=== PATIENT | female | born 1955 | race Caucasian/White ===

== ENCOUNTER → 2016-12-10 | Outpatient (CLI) | payer MEDICAID ==
--- NOTE | 2016-12-10 15:37 | WOMENS IMAGING REPORT ---
EXAM DESCRIPTION: BILAT SCREENING MAMMO W/CAD COMPLETED DATE/TIME: 12/10/2016 2:41 pm REASON FOR STUDY: Z12.31 ROUTINE SCREENING MAMMO Z12.31 ENCNTR SCREEN MAMMOGRAM FOR MALIGNANT NEOPL ASM OF MISAEL COMPARISON: None. TECHNIQUE: Standard craniocaudal and mediolateral oblique views of each breast recorded using [employer] l acquisition. LIMITATIONS: None. FINDINGS: Findings present which are benign by mammographic criteria. No suspicious masses, calcifi cations or architectural distortion. Benign breast parenchymal calcifications bilaterally. Read with the assistance of CAD. .[facility] - R2 Cenova Version 1.3 .[facility] - R2 Cenova Version 1.3 .[facility] - R2 Cenova Version 2.4 .[facility] - R2 Cenova Version 2.4 .[facility] - R2 Deputy Director Version 9.2 Benign mammographic findings may include one or more of the following: Smooth masses, popcorn/rim/co arse calcifications, asymmetries, post-procedure changes, and lesions with long-standing stability. BREAST DENSITY: a. The breasts are almost entirely fatty. BIRAD: 2 BENIGN FINDING(S) RECOMMENDATION: ROUTINE SCREENING COMMENT: PATIENT NOTIFIED BY LETTER. The [employer] recommends an annual screening mammogram for women aged 40 years or over. Each patient will receive a reminder prior to the anniversary date of her mammogram. The [employer] (ACR) has developed recommendations for screening MRI of the breast s in certain patient populations, to be used in conjunction with mammography. Breast MRI surveillanc e may be appropriate for women with more than 20% lifetime risk of developing breast cancer as deter mined by genetic testing, significant family history of the disease, or history of mantle radiation f or Hodgkins Disease. ACR Practice Guidelines 2008. TECHNICAL DOCUMENTATION: FINDING NUMBER: (1) ASSESSMENT: (1) JOB ID: [id number] [employer]- All Rights Reserved
== END ==
LOC: WI 14:01
PROVIDERS: ATTEND Nurse Practitioner Family
DX: Z12.31 Encounter for screening mammogram for malignant neoplasm of breast (principal)
CPT/HCPCS: 77067; G0202

== ENCOUNTER 2016-12-16 09:36 | Emergency (ER) | payer MEDICAID ==
--- NOTE | 2016-12-16 10:06 | ER Document Report ---
ED General - General Chief Complaint: Abdominal Pain Stated Complaint: ABDOMINAL PAIN Information source: Patient Notes: 61 yr old female presents with complaints of abdominal pain back pain of 1 month duration. pt was seen at ED on sat , treated with percocet for pain. ran out of pain medication last night and awoke this morning with pain. imaging labs noted no signifcant abnormalities TRAVEL OUTSIDE OF THE [place] IN LAST 30 DAYS: No - HPI Onset: Other - One month duration Onset/Duration: Persistent Quality of pain: Achy Severity: Mild Pain Level: 1 Associated symptoms: None Exacerbated by: Denies Relieved by: Denies Similar symptoms previously: Yes Recently seen / treated by doctor: Yes - Related Data Allergies/Adverse Reactions: oxycodone [Oxycodone] Allergy (Mild, Verified 11/11/11 15:44) nausea, abdominal pain Past Medical History - Social History Smoking Status: Never Smoker Cigarette use (# per day): No Chew tobacco use (# tins/day): No Smoking Education Provided: No Family History: Reviewed & Not Pertinent - Past Medical History Cardiac Medical History: Denies: Hx Coronary Artery Disease, Hx Heart Attack, Hx Hypertension Pulmonary Medical History: Reports: Hx Asthma, Hx Bronchitis, Hx COPD Denies: Hx Pneumonia Neurological Medical History: Denies: Hx Cerebrovascular Accident - Has had numbness in Lt arm x2 in 5 yrs; unable to move it at the time, Hx Seizures Musculoskeltal Medical History: Reports Hx Arthritis - Fingers Past Surgical History: Reports: Hx Cholecystectomy. Denies: Hx Hysterectomy, Hx Pacemaker - Immunizations Hx Diphtheria, Pertussis, Tetanus Vaccination: No Hx Pneumococcal Vaccination: 08/31/14 Review of Systems - Review of Systems Notes: REVIEW OF SYSTEMS: CONSTITUTIONAL : Denies fever, chills, or sweats. Denies recent illness. EENT: Denies eye, ear, throat, or mouth pain or symptoms. Denies nasal or sinus congestion or discharge. Denies throat, tongue, or mouth swelling or difficulty swallowing. CARDIOVASCULAR: Denies chest pain. Denies palpitations or racing or irregular heart beat. Denies ankle edema. RESPIRATORY: Denies cough, cold, or chest congestion. Denies shortness of breath, difficulty breathing, or wheezing. GASTROINTESTINAL: Admits to abdominal pain GENITOURINARY: Denies difficulty urinating, painful urination, burning, frequency, blood in urine, or discharge. FEMALE GENITOURINARY: Denies vaginal bleeding, heavy or abnormal periods, irregular periods. Denies vaginal discharge or odor. MUSCULOSKELETAL: Admits to body ache SKIN: Denies rash, lesions or sores. HEMATOLOGIC : Denies easy bruising or bleeding. LYMPHATIC: Denies swollen, enlarged glands. NEUROLOGICAL: Denies confusion or altered mental status. Denies passing out or loss of consciousness. Denies dizziness or lightheadedness. Denies headache. Denies weakness or paralysis or loss of use of either side. Denies problems with gait or speech. Denies sensory loss, numbness, or tingling. Denies seizures. PSYCHIATRIC: Denies anxiety or stress. Denies depression, suicidal ideation, or homicidal ideation. ALL OTHER SYSTEMS REVIEWED AND NEGATIVE. Dictation was performed using [employer] voice recognition software PHYSICAL EXAMINATION: GENERAL: Well-appearing, well-nourished and in no acute distress. HEAD: Atraumatic, normocephalic. EYES: Pupils equal round and reactive to light, extraocular movements intact, conjunctiva are normal. ENT: Nares patent, oropharynx clear without exudates. Moist mucous membranes. NECK: Normal range of motion, supple without lymphadenopathy LUNGS: Breath sounds clear to auscultation bilaterally and equal. No wheezes rales or rhonchi. HEART: Regular rate and rhythm without murmurs ABDOMEN: Soft, nontender, nondistended abdomen. No guarding, no rebound. No masses appreciated. Female : deferred Musculoskeletal: Normal range of motion, no pitting or edema. No cyanosis. NEUROLOGICAL: Cranial nerves grossly intact. Normal speech, normal gait. Normal sensory, motor exams PSYCH: Normal mood, normal affect. SKIN: Warm, Dry, normal turgor, no rashes or lesions noted. Course - Re-evaluation Re-evalutation: 12/16/16 10:48 Physical examination noted no significant abnormalities, patient otherwise appears stable. Given her complaints 12/16/16 12:25 Patient's lab work is consistent with hypokalemia, she has been given potassium , magnesium is pending at this time 12/16/16 12:55 Imaging notes no significant abnormality, report has been given to the patient and friend After performing a Medical Screening Examination, I estimate there is LOW risk for ACUTE APPENDICITIS, BOWEL OBSTRUCTION, ACUTE CHOLECYSTITIS, PERFORATED DIVERTICULITIS, INCARCERATED HERNIA, PANCREATITIS, PELVIC INFLAMMATORY DISEASE, PERFORATED ULCER, ECTOPIC , or TUBO-OVARIAN ABSCESS, thus I consider the discharge disposition reasonable. Also, there is no evidence or peritonitis , sepsis, or toxicity. The patient and I have discussed the diagnosis and risks , and we agree with discharging home with close follow-up with the understanding that symptoms and presentations can change. We also discussed returning to the Emergency Department immediately if new or worsening symptoms occur. We have discussed the symptoms which are most concerning (e.g., bloody stool, fever, changing or worsening pain, vomiting) that necessitate immediate return. - Laboratory Result Diagrams: 12/16/16 09:45 12/16/16 09:45 Laboratory results interpreted by me: 12/16/16 09:45 Potassium 3.0 L* Chloride 109 H BUN 6 L Creatinine 0.43 L Calcium 7.4 L Total Protein 4.8 L Albumin 2.6 L - Diagnostic Test Radiology reviewed: Image reviewed, Reports reviewed Discharge - Discharge Clinical Impression: Hypokalemia Abdominal pain Qualifiers: Abdominal location: generalized Qualified Code(s): R10.84 - Generalized abdominal pain GERD (gastroesophageal reflux disease) Qualifiers: Esophagitis presence: with esophagitis Qualified Code(s): K21.0 - Gastro- esophageal reflux disease with esophagitis Condition: Stable Disposition: HOME, SELF-CARE Instructions: Abdominal Pain ([facility]) Additional Instructions: Please eat a banana daily for next 3 days and recheck your labs with your pcp in 1 week Prescriptions: Esomeprazole Magnesium [Nexium 24Hr] 20 mg PO DAILY #30 capsule.dr Referrals: JENNIFER GARCIA MD [ACTIVE STAFF] - Follow up tomorrow
[2016-12-16 10:09] LABS: ABSOLUTE LYMPHOCYTES (AUTO) 1.4 10^3/uL (0.5-4.7); ABSOLUTE MONOCYTES (AUTO) 0.7 10^3/uL (0.1-1.4); ABSOLUTE NEUT (AUTO) 7.1 10^3/uL (1.7-8.2); BASOPHILS % (AUTO) 0.2 % (0-2); EOSINOPHILS % (AUTO) 0.4 % (0-6); HEMATOCRIT 43.1 % (36.0-47.0); HEMOGLOBIN 13.9 g/dL (12.0-15.5); HGB HCT DIFFERENCE -1.4; LYMPHOCYTES % (AUTO) 15.3 % (13-45); MEAN CORPUSCULAR HEMOGLOBIN 30.8 pg (27.0-33.4); MEAN CORPUSCULAR HGB CONC 32.3 g/dL (32.0-36.0); MEAN CORPUSCULAR VOLUME 95 fl (80-97); MONOCYTES % (AUTO) 7.7 % (3-13); RED BLOOD COUNT 4.51 10^6/uL (3.72-5.28); RED CELL DISTRIBUTION WIDTH 13.7 % (11.5-14.0); SEGMENTED NEUTROPHILS % (AUTO) 76.4 % (42-78); WHITE BLOOD COUNT 9.3 10^3/uL (4.0-10.5)
[2016-12-16 10:23] LABS: ALANINE AMINOTRANSFERASE 15 U/L (9-52); ALBUMIN 2.6 g/dL (3.5-5.0); ALKALINE PHOSPHATASE 58 U/L (38-126); ANION GAP 8 (5-19); ASPARTATE AMINO TRANSFERASE 17 U/L (14-36); BILIRUBIN,TOTAL 0.5 mg/dL (0.2-1.3); BLOOD UREA NITROGEN 6 mg/dL (7-20); CALCIUM 7.4 mg/dL (8.4-10.2); CARBON DIOXIDE 24 mmol/L (22-30); CHLORIDE 109 mmol/L (98-107); CREATININE RESULT 0.43 mg/dL (0.52-1.25); GLUCOSE 85 mg/dL (75-110); LIPASE 82.5 U/L (23-300); SODIUM 141.2 mmol/L (137-145); TOTAL PROTEIN 4.8 g/dL (6.3-8.2)
[2016-12-16 10:28] LABS: APPEARANCE,URINE CLEAR; BILIRUBIN,URINE NEGATIVE (NEGATIVE); GLUCOSE, URINE NEGATIVE (NEGATIVE); KETONES,URINE NEGATIVE (NEGATIVE); LEUKOCYTE ESTERASE,URINE NEGATIVE (NEGATIVE); NITRITE,URINE NEGATIVE (NEGATIVE); PROTEIN,URINE NEGATIVE (NEGATIVE); URINE SPECIFIC GRAVITY 1.003; UROBILINOGEN,URINE NEGATIVE mg/dL (<2.0)
[2016-12-16] MEDS ORDERED: POTASSIUM CHLORIDE 10 MEQ TABLET.SA PO ONE (10:44)
== END 2016-12-16 13:30 | disposition home or self-care (01) ==
LOC: ER 09:36
DX: K21.0 Gastro-esophageal reflux disease with esophagitis (principal); E87.6 Hypokalemia; R10.84 Generalized abdominal pain; M54.9 Dorsalgia, unspecified; J44.9 Chronic obstructive pulmonary disease, unspecified; J45.909 Unspecified asthma, uncomplicated; Z86.73 Personal history of transient ischemic attack (TIA), and cerebral infarction without residual deficits; Z90.49 Acquired absence of other specified parts of digestive tract; Z88.5 Allergy status to narcotic agent
CPT/HCPCS: 36415; 74177; 80053; 81001; 83690; 83735; 85025; 99284

== ENCOUNTER → 2017-04-25 | Outpatient (CLI) | payer MEDICAID ==
--- NOTE | 2017-04-25 15:48 | WOMENS IMAGING REPORT ---
EXAM DESCRIPTION: U/S PELVIS NON-OB COMPLETED DATE/TIME: 04/25/2017 2:25 pm REASON FOR STUDY: R10.2 R10.2 PELVIC AND PERINEAL PAIN COMPARISON: None. TECHNIQUE: Dynamic and static grayscale images acquired of the pelvis via transabdominal approach an d recorded on PACS. Additional selected color Doppler and spectral images recorded. LIMITATIONS: None. FINDINGS: UTERUS: Contour normal. No mass. ENDOMETRIAL STRIPE: No focal or generalized thickening. No masses. CERVIX: No nabothian cysts. RIGHT OVARY: No abnormal masses. RIGHT OVARY DOPPLER: Normal arterial vascular flow without evidence for torsion. LEFT OVARY: Not seen. LEFT OVARY DOPPLER: Not applicable. FREE FLUID: None noted. OTHER: No other significant finding. MEASUREMENTS: UTERUS: 57 x 27 x 40 mm. ENDOMETRIAL STRIPE: 4 mm. RIGHT OVARY: 29 x 19 x 22 mm. LEFT OVARY: Not seen. IMPRESSION: NORMAL PELVIC ULTRASOUND BY TRANSABDOMINAL TECHNIQUE. TECHNICAL DOCUMENTATION: JOB ID: [id number] [employer]- All Rights Reserved
== END ==
LOC: WI 04-22 13:33
PROVIDERS: ATTEND Physician Assistant
DX: R10.2 Pelvic and perineal pain (principal)
CPT/HCPCS: 76856

== ENCOUNTER 2018-04-11 13:21 | Inpatient (IN) | payer MEDICAID ==
[2018-04-11] MEDS ORDERED: IPRATROPIUM/ALBUTEROL 0.5-2.5 MG/3 ML AMPUL NEB ONE ×2 (13:58→16:52)
[2018-04-11] MEDS ORDERED: PREDNISONE 20 MG TABLET PO ONE (13:58)
--- NOTE | 2018-04-11 14:02 | ER Document Report ---
ED Medical Screen (RME) - General Chief Complaint: Shortness Of Breath Stated Complaint: BREATHING ISSUES Time Seen by Provider: 04/11/18 13:53 Notes: RAPID MEDICAL EVALUATION DISCLOSURE I have seen this patient as part of a Rapid Medical Evaluation and, if applicable, placed any initially appropriate orders. The patient will be seen and fully evaluated, including a full history and physical exam, by a provider ( in Main ED or Fast Track) when a room becomes available. 62-year-old female here with complaints of shortness of breath wheezing chest tightness fatigue ongoing for the past few days. Some clear cough but is chronic and unchanged from baseline. She is having difficulty walking from her kitchen to her living room due to the symptoms. Has been using her inhalers with minimal relief. She does not have a nebulizer machine. She reports that she does not wear oxygen at home at baseline. She does not know her normal baseline oxygen saturation levels. EXAM Tachycardic, low 110s Minimal end expiratory wheezes diffusely Minimally decreased aeration diffusely Lower lobe rhonchi TRAVEL OUTSIDE OF THE [place] IN LAST 30 DAYS: No - Related Data Allergies/Adverse Reactions: oxycodone [Oxycodone] Allergy (Mild, Verified 04/11/18 13:24) nausea, abdominal pain Past Medical History - Past Medical History Cardiac Medical History: Denies: Hx Coronary Artery Disease, Hx Heart Attack, Hx Hypertension Pulmonary Medical History: Reports: Hx Asthma, Hx Bronchitis, Hx COPD Denies: Hx Pneumonia Neurological Medical History: Denies: Hx Cerebrovascular Accident - Has had numbness in Lt arm x2 in 5 yrs; unable to move it at the time, Hx Seizures Musculoskeltal Medical History: Reports Hx Arthritis - Fingers Past Surgical History: Reports: Hx Cholecystectomy. Denies: Hx Hysterectomy, Hx Pacemaker - Immunizations Hx Diphtheria, Pertussis, Tetanus Vaccination: No Physical Exam - Vital signs Vitals: Temp Pulse Resp BP Pulse Ox 98.6 F 114 H 26 H 140/80 H 90 L 04/11/18 13:42 04/11/18 13:42 04/11/18 13:42 04/11/18 13:42 04/11/18 13:42 Course - Vital Signs Vital signs: Temp Pulse Resp BP Pulse Ox 98.6 F 114 H 26 H 140/80 H 90 L 04/11/18 13:42 04/11/18 13:42 04/11/18 13:42 04/11/18 13:42 04/11/18 13:42
--- NOTE | 2018-04-11 14:33 | RADIOLOGY REPORT (SQ) ---
EXAM DESCRIPTION: CHEST 2 VIEWS COMPLETED DATE/TIME: 04/11/2018 2:22 pm REASON FOR STUDY: SOB hypoxia; eval pneumonia COMPARISON: 10/17/2015 EXAM PARAMETERS: NUMBER OF VIEWS: two views TECHNIQUE: Digital Frontal and Lateral radiographic views of the chest acquired. RADIATION DOSE: NA LIMITATIONS: none FINDINGS: LUNGS AND PLEURA: No opacities, masses or pneumothorax. No pleural effusion. MEDIASTINUM AND HILAR STRUCTURES: No masses or contour abnormalities. HEART AND VASCULAR STRUCTURES: Heart normal size. No evidence for failure. BONES: No acute findings. HARDWARE: None in the chest. OTHER: No other significant finding. IMPRESSION: NO ACUTE RADIOGRAPHIC FINDING IN THE CHEST. TECHNICAL DOCUMENTATION: JOB ID: [id number] [employer]- All Rights Reserved Reading location - IP/workstation name: [email or web address]
--- NOTE | 2018-04-11 14:48 | ER Document Report ---
ED General - General Chief Complaint: Shortness Of Breath Stated Complaint: BREATHING ISSUES Time Seen by Provider: 04/11/18 13:53 Mode of Arrival: Ambulatory Information source: Patient TRAVEL OUTSIDE OF THE [place] IN LAST 30 DAYS: No - HPI Patient complains to provider of: sob Onset: Other - "2-3 weeks ago" Onset/Duration: Gradual Associated symptoms: Productive cough - white sputum, Leg swelling - pt fell one week ago-contusion right weir., Shortness of breath Exacerbated by: Movement, Walking Relieved by: Whitley - MDIs not working Notes: Patient complains of 2-3 weeks of breathing issues. She states that she has a history of COPD. She does continue to smoke and she did have 2 cigarettes today. She states she does not have a nebulizer or home oxygen. She states her 3 inhalers are not working. She states she does have a history of a left lower extremity DVT last year she was on Xarelto and now is on 81 mg of aspirin daily.Patient states she has never been hospitalized for her COPD. She does state that she fell approximately 1 week ago she has a contusion on her right weir with a small cut. She was seen and treated for this last week. - Related Data Allergies/Adverse Reactions: oxycodone [Oxycodone] Allergy (Mild, Verified 04/11/18 13:24) nausea, abdominal pain Home Medications: klonipin, unknown all other medications. macrobid for recent UTI Past Medical History - General Information source: Patient - Social History Smoking Status: Current Every Day Smoker Cigarette use (# per day): No Smoking Education Provided: Yes Frequency of alcohol use: None Drug Abuse: None Lives with: Alone - next door to her mom Family History: Reviewed & Not Pertinent Patient has suicidal ideation: No Patient has homicidal ideation: No - Past Medical History Cardiac Medical History: Reports: Hx DVT Denies: Hx Coronary Artery Disease, Hx Heart Attack, Hx Hypertension Pulmonary Medical History: Reports: Hx Asthma, Hx Bronchitis, Hx COPD Denies: Hx Pneumonia EENT Medical History: Reports: None Neurological Medical History: Reports: None. Denies: Hx Cerebrovascular Accident - Has had numbness in Lt arm x2 in 5 yrs; unable to move it at the time , Hx Seizures Endocrine Medical History: Reports: None Renal/ Medical History: Denies: Hx Peritoneal Dialysis Malignancy Medical History: Reports: None GI Medical History: Reports: None Musculoskeltal Medical History: Reports Hx Arthritis - Fingers Skin Medical History: Reports None Psychiatric Medical History: Reports: None Traumatic Medical History: Reports: None Past Surgical History: Reports: Hx Cholecystectomy. Denies: Hx Hysterectomy, Hx Pacemaker - Immunizations Hx Diphtheria, Pertussis, Tetanus Vaccination: No Hx Pneumococcal Vaccination: 08/31/14 Review of Systems - Review of Systems Constitutional: Other - fatigue EENT: No symptoms reported Cardiovascular: No symptoms reported Respiratory: See HPI, Cough, Short of breath, Sputum, Wheezing Gastrointestinal: No symptoms reported Female Genitourinary: Other - treated for uti last week Musculoskeletal: No symptoms reported Skin: Other - contusion/laceration right weir Neurological/Psychological: No symptoms reported Physical Exam - Vital signs Vitals: Temp Pulse Resp BP Pulse Ox 98.6 F 114 H 26 H 140/80 H 90 L 04/11/18 13:42 04/11/18 13:42 04/11/18 13:42 04/11/18 13:42 04/11/18 13:42 - Notes Notes: PHYSICAL EXAMINATION: GENERAL: Well-appearing, well-nourished and in Mild respiratory distress. HEAD: Atraumatic, normocephalic. EYES: Pupils equal round and reactive to light, extraocular movements intact, conjunctiva are normal. ENT: Nares patent, oropharynx clear without exudates. Moist mucous membranes. NECK: Normal range of motion, supple without lymphadenopathy LUNGS:Respiratory and expiratory wheezing bilaterally. No rhonchi no rales HEART: Regular rate and rhythm without murmurs ABDOMEN: Soft, nontender, nondistended abdomen. No guarding, no rebound. No masses appreciated. Female : deferred Musculoskeletal: Normal range of motion, no pitting or edema. No cyanosis. NEUROLOGICAL: Cranial nerves grossly intact. Normal speech. Normal sensory, motor exams PSYCH: Normal mood, normal affect. SKIN: Warm, Dry, normal turgor, no rashe. Patient has a contusion to her right upper weir area just distal to her knee. There is no pain or tenderness of the fibular head with palpation. There is no tenderness to the knee. Patient has no calf swelling or tenderness bilaterally. Course - Re-evaluation Re-evalutation: 04/11/18 18:00 Pt. 90% pulse ox with 2nd duoneb tx. Aggreeable to admission. 04/11/18 18:01 Labs- All tests 24 hr 04/11/18 04/11/18 04/11/18 14:35 14:35 14:35 WBC 10.4 RBC 4.69 Hgb 14.0 Hct 42.0 MCV 90 MCH 29.8 MCHC 33.3 RDW 14.4 H Plt Count 327 Seg Neutrophils % 77.5 Lymphocytes % 12.4 L Monocytes % 6.4 Eosinophils % 3.4 Basophils % 0.3 Absolute Neutrophils 8.0 Absolute Lymphocytes 1.3 Absolute Monocytes 0.7 Absolute Eosinophils 0.4 Absolute Basophils 0.0 Sodium 146.2 H Potassium 3.5 L Chloride 101 Carbon Dioxide 33 H Anion Gap 12 BUN 5 L Creatinine 0.51 L Est GFR ( Amer) > 60 Est GFR (Non-Af Amer) > 60 Glucose 109 Lactic Acid 1.4 Calcium 9.5 Troponin I Urine Color Urine Appearance Urine pH Ur Specific [place] Urine Protein Urine Glucose (UA) Urine Ketones Urine Blood Urine Nitrite Urine Bilirubin Urine Urobilinogen Ur Leukocyte Esterase Urine WBC (Auto) Urine Bacteria (Auto) Squamous Epi Cells Auto Urine Mucus (Auto) Urine Ascorbic Acid 04/11/18 04/11/18 14:35 14:35 WBC RBC Hgb Hct MCV MCH MCHC RDW Plt Count Seg Neutrophils % Lymphocytes % Monocytes % Eosinophils % Basophils % Absolute Neutrophils Absolute Lymphocytes Absolute Monocytes Absolute Eosinophils Absolute Basophils Sodium Potassium Chloride Carbon Dioxide Anion Gap BUN Creatinine Est GFR ( Amer) Est GFR (Non-Af Amer) Glucose Lactic Acid Calcium Troponin I < 0.012 Urine Color STRAW Urine Appearance CLEAR Urine pH 7.0 Ur Specific [place] 1.003 Urine Protein NEGATIVE Urine Glucose (UA) NEGATIVE Urine Ketones NEGATIVE Urine Blood NEGATIVE Urine Nitrite NEGATIVE Urine Bilirubin NEGATIVE Urine Urobilinogen NEGATIVE Ur Leukocyte Esterase NEGATIVE Urine WBC (Auto) 2 Urine Bacteria (Auto) TRACE Squamous Epi Cells Auto <1 Urine Mucus (Auto) RARE Urine Ascorbic Acid NEGATIVE Chest X-Ray 04/11/18 13:58 IMPRESSION: NO ACUTE RADIOGRAPHIC FINDING IN THE CHEST. Chest/Abdomen CTA 04/11/18 14:38 IMPRESSION: CENTRILOBULAR EMPHYSEMA. CHRONIC BILATERAL INTERSTITIAL SCARRING. NO PULMONARY EMBOLI. - Vital Signs Vital signs: Temp Pulse Resp BP Pulse Ox 98.6 F 114 H 26 H 140/80 H 90 L 04/11/18 13:42 04/11/18 13:42 04/11/18 13:42 04/11/18 13:42 04/11/18 13:42 - Laboratory Result Diagrams: 04/11/18 14:35 04/11/18 14:35 Laboratory results interpreted by me: 04/11/18 04/11/18 14:35 14:35 RDW 14.4 H Lymphocytes % 12.4 L Sodium 146.2 H Potassium 3.5 L Carbon Dioxide 33 H BUN 5 L Creatinine 0.51 L - Diagnostic Test Radiology reviewed: Image reviewed, Reports reviewed - EKG Interpretation by Me EKG shows normal: Sinus rhythm Rate: Tachycardia - 109 When compared to previous EKG there are: No significant change Discharge - Discharge Clinical Impression: COPD exacerbation Condition: Good Disposition: ADMITTED INPATIENT Admitting Provider: Hospitalist - Dr. Leon Unit Admitted: Telemetry
[2018-04-11 14:57] LABS: ABSOLUTE EOSINOPHILS # (AUTO) 0.4 10^3/uL (0.0-0.6); ABSOLUTE LYMPHOCYTES (AUTO) 1.3 10^3/uL (0.5-4.7); ABSOLUTE MONOCYTES (AUTO) 0.7 10^3/uL (0.1-1.4); BASOPHILS % (AUTO) 0.3 % (0-2); EOSINOPHILS % (AUTO) 3.4 % (0-6); LYMPHOCYTES % (AUTO) 12.4 % (13-45); MEAN CORPUSCULAR HEMOGLOBIN 29.8 pg (27.0-33.4); MEAN CORPUSCULAR HGB CONC 33.3 g/dL (32.0-36.0); MEAN CORPUSCULAR VOLUME 90 fl (80-97); MONOCYTES % (AUTO) 6.4 % (3-13); PLATELET COUNT 327 10^3/uL (150-450); RED BLOOD COUNT 4.69 10^6/uL (3.72-5.28); RED CELL DISTRIBUTION WIDTH 14.4 % (11.5-14.0); SEGMENTED NEUTROPHILS % (AUTO) 77.5 % (42-78); TOTAL CELLS COUNTED % (AUTO) 100 %; WHITE BLOOD COUNT 10.4 10^3/uL (4.0-10.5)
[2018-04-11 15:02] LABS: APPEARANCE,URINE CLEAR; BILIRUBIN,URINE NEGATIVE (NEGATIVE); COLOR,URINE STRAW; GLUCOSE, URINE NEGATIVE (NEGATIVE); KETONES,URINE NEGATIVE (NEGATIVE); LEUKOCYTE ESTERASE,URINE NEGATIVE (NEGATIVE); NITRITE,URINE NEGATIVE (NEGATIVE); PROTEIN,URINE NEGATIVE (NEGATIVE); URINE SPECIFIC GRAVITY 1.003; UROBILINOGEN,URINE NEGATIVE mg/dL (<2.0)
[2018-04-11 15:23] LABS: ANION GAP 12 (5-19); BLOOD UREA NITROGEN 5 mg/dL (7-20); CALCIUM 9.5 mg/dL (8.4-10.2); CARBON DIOXIDE 33 mmol/L (22-30); CHLORIDE 101 mmol/L (98-107); GLUCOSE 109 mg/dL (75-110); POTASSIUM 3.5 mmol/L (3.6-5.0); SODIUM 146.2 mmol/L (137-145)
--- NOTE | 2018-04-11 15:53 | EKG REPORT ---
SEVERITY:- ABNORMAL ECG - SINUS TACHYCARDIA CONSIDER ANTEROSEPTAL INFARCT : Confirmed by: Rome Alberts MD 11-Apr-2018 15:52:51
--- NOTE | 2018-04-11 17:02 | RADIOLOGY REPORT (SQ) ---
EXAM DESCRIPTION: CTA CHEST COMPLETED DATE/TIME: 04/11/2018 4:39 pm REASON FOR STUDY: h/o LLE DVT last year -on ASA 81 mg COMPARISON: None. TECHNIQUE: CT scan of the chest performed using helical scanning technique with dynamic intravenous contrast injection. Images reviewed with lung, soft tissue and bone windows. Reconstructed coronal and sagittal MPR images reviewed. Additional 3 dimensional post-processing performed to develop Maximal Intensity Projection images (MS P). All images stored on PACS. All CT scanners at this facility use dose modulation, iterative reconstruction, and/or weight based d osing when appropriate to reduce radiation dose to as low as reasonably achievable (ALARA). [facility]: Dose Right [facility]: CareDose [facility]: Dose Right [facility]: Teradose 4D [facility]: [employer] Technologies CONTRAST TYPE AND DOSE: Isovue 370. 65 mL. Contrast bolus optimized for the pulmonary arteries. Not diagnostic for the aorta. RENAL FUNCTION: Creatinine: 0.51. RADIATION DOSE: 511.78 LIMITATIONS: None. FINDINGS: LUNGS AND PLEURA: Changes of centrilobular emphysema. Chronic subpleural interstitial eileen nges within the upper lobes and both lower lobes. AORTA AND GREAT VESSELS: No aneurysm. Contrast bolus not optimized for the aorta. HEART: No pericardial effusion. No significant coronary artery calcifications. PULMONARY ARTERIES: No pulmonary emboli. HILAR AND MEDIASTINAL STRUCTURES: Small nonenlarged pretracheal, AP window and hilar nodes. . HARDWARE: None in the chest. UPPER ABDOMEN: Hiatal hernia. The liver, spleen, and upper poles of the kidneys demonstrate no abnor mality. Prominent hypodense adrenal masses could represent incidental adrenal adenomata. Status pos t cholecystectomy. THYROID AND OTHER SOFT TISSUES: No masses. No adenopathy. BONES: No acute or significant finding. IMPRESSION: CENTRILOBULAR EMPHYSEMA. CHRONIC BILATERAL INTERSTITIAL SCARRING. NO PULMONARY EMBOLI. COMMENT: Quality ID # [id number]: Final reports with documentation of one or more dose reduction techniques (e.g., Automated exposure control, adjustment of the mA and/or kV according to patient size, use of iterative reconstruction technique) TECHNICAL DOCUMENTATION: JOB ID: [id number] [employer]- All Rights Reserved Reading location - IP/workstation name: [email or web address]
[2018-04-11] MEDS ORDERED: METHYLPREDNISOLONE INJ 40 MG/1 ML SDV IV ONE (17:53)
[2018-04-11] MEDS ORDERED: LINACLOTIDE 290 MCG PO PRN (18:37)
--- NOTE | 2018-04-11 18:39 | PDOC H&P ---
History of Present Illness Admission Date/PCP: PCP: Jessica Houser 04/11/18 Patient complains of: SOB History of Present Illness: The patient is a 62 year old female with past medical history of Depression Panic attacks GERD Emphysema Tobacco dependence DVT She presented to the emergency room with a 3 day history of shortness of breath and cough with mucoid expectoration. She denies any fevers or chills. She smokes 2 cigarettes a day. Healthcare power of city attorney is her mother Sonali. Phone #[phone]. She requests to be a full code. In the emergency room she was found to be satting 89% on room air. She was given nebs and steroids. Chest x-ray shows COPD no infiltrates or effusion or pulmonary edema. Past Medical History Cardiac Medical History: Reports: DVT Pulmonary Medical History: Reports: Chronic Obstructive Pulmonary Disease (COPD) GI Medical History: Reports: Gastroesophageal Reflux Disease Psychiatric Medical History: Reports: Depression, Tobacco Dependency Past Surgical History Past Surgical History: Reports: Cholecystectomy Social History Information Source: Patient Lives with: Alone - next door to her mom Smoking Status: Current Every Day Smoker Frequency of Alcohol Use: None Drugs: None Hx Prescription Drug Abuse: No - Advance Directive Resuscitation Status: Full Code Family History Family History: CAD, COPD Parental Family History Reviewed: Yes Children Family History Reviewed: Yes Sibling(s) Family History Reviewed.: Yes Medication/Allergy Home Medications: Clonazepam 0.5 mg PO TID 11/11/11 Albuterol Sulfate [Proair HFA] 2 puff IH Q4H PRN 10/17/15 Budesonide/Formoterol Fumarate [Symbicort HFA 80-4.5 mcg Inhaler 6.9 gm] 1 puff IH BID 10/17/15 Clonidine HCl [Clonidine HCl ER] 0.1 mg PO QHS 10/17/15 Tiotropium [place] [Spiriva Handihaler 18 mcg/dose (30 Dose)] 1 cap IH DAILY Esomeprazole Magnesium [Nexium 24Hr] 20 mg PO DAILY #30 capsule. 12/16/16 Allergies/Adverse Reactions: oxycodone [Oxycodone] Allergy (Mild, Verified 04/11/18 13:24) nausea, abdominal pain Review of Systems Constitutional: ABSENT: fever(s) Eyes: ABSENT: visual disturbances Ears: ABSENT: hearing changes Nose, Mouth, and Throat: ABSENT: sore throat Cardiovascular: ABSENT: chest pain, edema Respiratory: PRESENT: cough, dyspnea. ABSENT: hemoptysis Gastrointestinal: ABSENT: diarrhea, vomiting Genitourinary: PRESENT: hematuria Musculoskeletal: ABSENT: deformity Integumentary: ABSENT: rash Neurological: ABSENT: focal weakness Psychiatric: ABSENT: hallucinations Endocrine: ABSENT: heat intolerance Hematologic/Lymphatic: ABSENT: easy bruising Physical Exam Vital Signs: Temp Pulse Resp BP Pulse Ox 98.6 F 114 H 26 H 140/80 H 90 L 04/11/18 13:42 04/11/18 13:42 04/11/18 13:42 04/11/18 13:42 04/11/18 13:42 Intake & Output 04/10/18 04/11/18 04/12/18 06:59 06:59 06:59 Weight 63.6 kg General appearance: PRESENT: no acute distress Head exam: PRESENT: normocephalic Eye exam: PRESENT: PERRLA. ABSENT: scleral icterus Ear exam: PRESENT: normal external ear exam Mouth exam: PRESENT: moist Throat exam: ABSENT: tonsillar exudate Neck exam: ABSENT: tracheal deviation Respiratory exam: PRESENT: decreased breath sounds, symmetrical, unlabored Cardiovascular exam: PRESENT: RRR GI/Abdominal exam: PRESENT: normal bowel sounds, soft. ABSENT: tenderness Rectal exam: PRESENT: deferred Extremities exam: ABSENT: calf tenderness, pedal edema Musculoskeletal exam: PRESENT: normal inspection Neurological exam: PRESENT: alert, awake, oriented to person, oriented to place , oriented to time, oriented to situation Psychiatric exam: PRESENT: appropriate affect Skin exam: ABSENT: petechiae Results Laboratory Results: 04/11/18 14:35 04/11/18 14:35 04/11/18 04/11/18 04/11/18 14:35 14:35 14:35 WBC 10.4 RBC 4.69 Hgb 14.0 Hct 42.0 MCV 90 MCH 29.8 MCHC 33.3 RDW 14.4 H Plt Count 327 Seg Neutrophils % 77.5 Lymphocytes % 12.4 L Monocytes % 6.4 Eosinophils % 3.4 Basophils % 0.3 Absolute Neutrophils 8.0 Absolute Lymphocytes 1.3 Absolute Monocytes 0.7 Absolute Eosinophils 0.4 Absolute Basophils 0.0 Sodium 146.2 H Potassium 3.5 L Chloride 101 Carbon Dioxide 33 H Anion Gap 12 BUN 5 L Creatinine 0.51 L Est GFR ( Amer) > 60 Est GFR (Non-Af Amer) > 60 Glucose 109 Lactic Acid 1.4 Calcium 9.5 Urine Color Urine Appearance Urine pH Ur Specific [place] Urine Protein Urine Glucose (UA) Urine Ketones Urine Blood Urine Nitrite Ur Leukocyte Esterase Urine WBC (Auto) 04/11/18 14:35 WBC RBC Hgb Hct MCV MCH MCHC RDW Plt Count Seg Neutrophils % Lymphocytes % Monocytes % Eosinophils % Basophils % Absolute Neutrophils Absolute Lymphocytes Absolute Monocytes Absolute Eosinophils Absolute Basophils Sodium Potassium Chloride Carbon Dioxide Anion Gap BUN Creatinine Est GFR ( Amer) Est GFR (Non-Af Amer) Glucose Lactic Acid Calcium Urine Color STRAW Urine Appearance CLEAR Urine pH 7.0 Ur Specific [place] 1.003 Urine Protein NEGATIVE Urine Glucose (UA) NEGATIVE Urine Ketones NEGATIVE Urine Blood NEGATIVE Urine Nitrite NEGATIVE Ur Leukocyte Esterase NEGATIVE Urine WBC (Auto) 2 04/11/18 14:35 Troponin I < 0.012 Impressions: Chest X-Ray 04/11/18 13:58 IMPRESSION: NO ACUTE RADIOGRAPHIC FINDING IN THE CHEST. Chest/Abdomen CTA 04/11/18 14:38 IMPRESSION: CENTRILOBULAR EMPHYSEMA. CHRONIC BILATERAL INTERSTITIAL SCARRING. NO PULMONARY EMBOLI. Assessment & Plan - Diagnosis (1) COPD exacerbation Is this a current diagnosis for this admission?: Yes Plan: Nebs, outpatient inhalers, supplemental oxygen, steroids, mucinex (2) Panic attacks Is this a current diagnosis for this admission?: Yes Plan: Clonazepam (3) GERD (gastroesophageal reflux disease) Qualifiers: Esophagitis presence: esophagitis presence not specified Qualified Code(s) : K21.9 - Gastro-esophageal reflux disease without esophagitis Is this a current diagnosis for this admission?: Yes Plan: PPI - Time Time Spent: 50 to 70 Minutes - Inpatient Certification Based on my medical assessment, after consideration of the patient's comorbidities, presenting symptoms, or acuity I expect that the services needed warrant INPATIENT care.: Yes Medical Necessity: Risk of Complication if Not Cared For in Hospital, Risk of Diagnosis Which Will Require Inpatient Eval/Care/Monitoring
[2018-04-11] MEDS ORDERED: LEVALBUTEROL HCL NEB 1.25 MG/3 ML AMPUL NEB PRN (18:40)
[2018-04-11] MEDS ORDERED: TEMAZEPAM 7.5 MG CAPSULE PO PRN (18:40)
[2018-04-11] MEDS ORDERED: ONDANSETRON HCL INJ/PF 4 MG/2 ML SDV IV PRN (18:40)
[2018-04-11] MEDS ORDERED: ACETAMINOPHEN 325 MG TABLET PO PRN (18:40)
[2018-04-11] MEDS ORDERED: ONDANSETRON 4 MG TAB.RAPDIS PO PRN (18:40)
[2018-04-11] MEDS: ALBUTEROL SULFATE 0.083% NEB 2.5 MG/3 ML AMPUL NEB SCH (20:35)
[2018-04-11] MEDS: CLONAZEPAM 1 MG TABLET PO SCH (23:39)
[2018-04-11] MEDS: GABAPENTIN 400 MG CAPSULE PO SCH (23:39)
[2018-04-12 05:25] LABS: ANION GAP 9 (5-19); BLOOD UREA NITROGEN 8 mg/dL (7-20); CALCIUM 9.3 mg/dL (8.4-10.2); CARBON DIOXIDE 32 mmol/L (22-30); CHLORIDE 104 mmol/L (98-107); GLUCOSE 129 mg/dL (75-110); PHOSPHORUS 3.6 mg/dL (2.5-4.5)
[2018-04-12 05:45] LABS: POTASSIUM 4.5 mmol/L (3.6-5.0)
[2018-04-12] MEDS: GABAPENTIN 400 MG CAPSULE PO SCH ×3 (05:48→21:44)
[2018-04-12] MEDS: ALBUTEROL SULFATE 0.083% NEB 2.5 MG/3 ML AMPUL NEB SCH ×4 (08:05→19:53)
[2018-04-12] MEDS ORDERED: METHYLPREDNISOLONE INJ 40 MG/1 ML SDV IV ONE (08:45)
[2018-04-12] MEDS: DOCUSATE SODIUM 100 MG CAPSULE PO SCH (09:10)
[2018-04-12] MEDS: ASPIRIN 81 MG TABLET, CHEWABLE PO SCH (09:11)
[2018-04-12] MEDS: CLONAZEPAM 1 MG TABLET PO SCH ×2 (09:11→21:44)
[2018-04-12] MEDS: BUDESONIDE/FORMOTEROL 80-4.5 MCG 60 PUFF/6.9 GM MDI IH SCH ×2 (09:46→17:17)
[2018-04-12] MEDS: TIOTROPIUM BROMIDE DPI 5 CAP/KIT (18 MCG/CAP) IH SCH (09:46)
[2018-04-12] MEDS ORDERED: ENOXAPARIN SODIUM INJ 40 MG/0.4 ML DISP.SYRIN SUBCUT SCH (10:00)
[2018-04-12] MEDS ORDERED: LANSOPRAZOLE 30 MG TAB.RAP.DR PO SCH (10:00)
--- NOTE | 2018-04-12 12:26 | PDOC PROGRESS REPORT ---
Subjective Progress Note for:: 04/12/18 Subjective:: Feels better today. had one episode of wheezing and dyspnea this morning which improved with a neb treatment Reason For Visit: COPD EXACERBATION Physical Exam Vital Signs: Temp Pulse Resp BP Pulse Ox 97.9 F 90 18 136/74 H 90 L 04/12/18 07:17 04/12/18 08:05 04/12/18 08:05 04/12/18 07:17 04/12/18 08:05 Intake & Output 04/11/18 04/12/18 04/13/18 06:59 06:59 06:59 Intake Total 400 Balance 400 Weight 63.6 kg General appearance: PRESENT: no acute distress Head exam: PRESENT: normocephalic Eye exam: PRESENT: PERRLA Ear exam: PRESENT: normal external ear exam Mouth exam: PRESENT: moist Neck exam: ABSENT: tracheal deviation Respiratory exam: PRESENT: rhonchi, symmetrical, unlabored Cardiovascular exam: PRESENT: RRR GI/Abdominal exam: PRESENT: normal bowel sounds, soft. ABSENT: tenderness Rectal exam: PRESENT: deferred Extremities exam: ABSENT: pedal edema Musculoskeletal exam: PRESENT: normal inspection Neurological exam: PRESENT: alert, awake, oriented to person, oriented to place , oriented to time, oriented to situation Psychiatric exam: PRESENT: appropriate affect Skin exam: ABSENT: rash Results Laboratory Results: 04/12/18 04:32 04/12/18 04/12/18 04:32 04:32 Sodium 145.0 Potassium 4.5 D Chloride 104 Carbon Dioxide 32 H Anion Gap 9 BUN 8 Creatinine 0.59 Est GFR ( Amer) > 60 Est GFR (Non-Af Amer) > 60 Glucose 129 H Calcium 9.3 Phosphorus 3.6 Magnesium 1.9 TSH 0.14 L 04/12/18 04:32 NT-Pro-B Natriuret Pep 75 Impressions: Chest X-Ray 04/11/18 13:58 IMPRESSION: NO ACUTE RADIOGRAPHIC FINDING IN THE CHEST. Chest/Abdomen CTA 04/11/18 14:38 IMPRESSION: CENTRILOBULAR EMPHYSEMA. CHRONIC BILATERAL INTERSTITIAL SCARRING. NO PULMONARY EMBOLI. Assessment & Plan - Diagnosis (1) COPD exacerbation Is this a current diagnosis for this admission?: Yes Plan: Nebs, outpatient inhalers, supplemental oxygen, steroids, mucinex (2) Panic attacks Is this a current diagnosis for this admission?: Yes Plan: Clonazepam (3) GERD (gastroesophageal reflux disease) Qualifiers: Esophagitis presence: esophagitis presence not specified Qualified Code(s) : K21.9 - Gastro-esophageal reflux disease without esophagitis Is this a current diagnosis for this admission?: Yes Plan: PPI - Time Time Spent with patient: 25-34 minutes
[2018-04-12] MEDS: METHYLPREDNISOLONE INJ 40 MG/1 ML SDV IV SCH ×2 (13:42→21:44)
[2018-04-13] MEDS: GABAPENTIN 400 MG CAPSULE PO SCH ×3 (06:07→22:19)
[2018-04-13] MEDS: METHYLPREDNISOLONE INJ 40 MG/1 ML SDV IV SCH ×3 (06:08→22:20)
[2018-04-13] MEDS: LANSOPRAZOLE 30 MG TAB.RAP.DR PO SCH (06:08)
[2018-04-13 07:44] LABS: FREE T4 (FREE THYROXINE) 1.08 ng/dL (0.78-2.19)
[2018-04-13 07:57] LABS: THYROID STIMULATING HORMONE 0.12 uIU/mL (0.47-4.68)
[2018-04-13] MEDS: ALBUTEROL SULFATE 0.083% NEB 2.5 MG/3 ML AMPUL NEB SCH ×4 (08:08→20:27)
[2018-04-13] MEDS: TIOTROPIUM BROMIDE DPI 5 CAP/KIT (18 MCG/CAP) IH SCH (10:59)
[2018-04-13] MEDS: BUDESONIDE/FORMOTEROL 80-4.5 MCG 60 PUFF/6.9 GM MDI IH SCH ×2 (11:02→17:40)
[2018-04-13] MEDS: ASPIRIN 81 MG TABLET, CHEWABLE PO SCH (11:03)
[2018-04-13] MEDS: DOCUSATE SODIUM 100 MG CAPSULE PO SCH (11:03)
[2018-04-13] MEDS: CLONAZEPAM 1 MG TABLET PO SCH ×2 (11:03→22:19)
[2018-04-13] MEDS ORDERED: MAG HYDROX/AL HYDROX/SIMETH SUSP 30 ML UDCUP PO PRN (12:06)
[2018-04-13] MEDS ORDERED: SIMETHICONE 80 MG TAB.CHEW PO PRN (12:06)
[2018-04-13 12:40] LABS: HEMATOCRIT 40.3 % (36.0-47.0); HEMOGLOBIN 13.1 g/dL (12.0-15.5); MEAN CORPUSCULAR HEMOGLOBIN 29.3 pg (27.0-33.4); MEAN CORPUSCULAR HGB CONC 32.5 g/dL (32.0-36.0); MEAN CORPUSCULAR VOLUME 90 fl (80-97); PLATELET COUNT 334 10^3/uL (150-450); RED BLOOD COUNT 4.48 10^6/uL (3.72-5.28); RED CELL DISTRIBUTION WIDTH 14.4 % (11.5-14.0); WHITE BLOOD COUNT 12.8 10^3/uL (4.0-10.5)
--- NOTE | 2018-04-13 12:45 | PDOC PROGRESS REPORT ---
Subjective Progress Note for:: 04/13/18 Subjective:: 62 yr old female with COPD and h/o panic attacks. She presented to the hospital with dyspnea and was diagnosed with COPD exacerbation. She was recemtly treated with antibiotics for a UTI as an outpatient. She reports dysuria today. UA was negative on admission. She requests another UA and urine culture. Complaints of constipation and heartburn. Reason For Visit: COPD EXACERBATION Physical Exam Vital Signs: Temp Pulse Resp BP Pulse Ox 97.7 F 85 16 131/68 H 90 L 04/13/18 11:14 04/13/18 12:11 04/13/18 12:11 04/13/18 11:14 04/13/18 12:11 Intake & Output 04/12/18 04/13/18 04/14/18 06:59 06:59 06:59 Intake Total 400 812 Balance 400 812 Weight 63.6 kg 65.4 kg Results Laboratory Results: 04/13/18 06:25 TSH 0.12 L Free T4 1.08 04/12/18 04:32 NT-Pro-B Natriuret Pep 75 Impressions: Chest X-Ray 04/11/18 13:58 IMPRESSION: NO ACUTE RADIOGRAPHIC FINDING IN THE CHEST. Chest/Abdomen CTA 04/11/18 14:38 IMPRESSION: CENTRILOBULAR EMPHYSEMA. CHRONIC BILATERAL INTERSTITIAL SCARRING. NO PULMONARY EMBOLI. Assessment & Plan - Diagnosis (1) COPD exacerbation Is this a current diagnosis for this admission?: Yes Plan: Nebs, outpatient inhalers, supplemental oxygen, steroids, mucinex (2) Panic attacks Is this a current diagnosis for this admission?: Yes Plan: Clonazepam. (3) GERD (gastroesophageal reflux disease) Qualifiers: Esophagitis presence: esophagitis presence not specified Qualified Code(s) : K21.9 - Gastro-esophageal reflux disease without esophagitis Is this a current diagnosis for this admission?: Yes Plan: PPI, maalox prn (4) Dysuria Is this a current diagnosis for this admission?: Yes Plan: Check UA and urine culture. Fluconazole 150 mg once for possible yeast infection. (5) Constipation Is this a current diagnosis for this admission?: Yes Plan: LInzess and laxatives prn (6) DVT prophylaxis Is this a current diagnosis for this admission?: Yes Plan: Subcutaneous Lovenox - Time Time Spent with patient: 25-34 minutes
[2018-04-13 12:49] LABS: INTERNATIONAL RATION (INR) 0.83; PROTHROMBIN TIME 11.8 SEC (11.4-15.4)
[2018-04-13] MEDS ORDERED: ENOXAPARIN SODIUM INJ 40 MG/0.4 ML DISP.SYRIN SUBCUT ONE (13:00)
[2018-04-13] MEDS ORDERED: FLUCONAZOLE 100 MG TABLET PO ONE (13:00)
[2018-04-13] MEDS ORDERED: GUAIFENESIN 600 MG TABLET.SA PO ONE (13:00)
[2018-04-13] MEDS ORDERED: MAGNESIUM CITRATE 296 ML BOTTLE PO ONE (14:00)
[2018-04-13 15:05] LABS: APPEARANCE,URINE CLEAR; BILIRUBIN,URINE NEGATIVE (NEGATIVE); COLOR,URINE STRAW; GLUCOSE, URINE NEGATIVE (NEGATIVE); KETONES,URINE NEGATIVE (NEGATIVE); LEUKOCYTE ESTERASE,URINE MODERATE (NEGATIVE); NITRITE,URINE NEGATIVE (NEGATIVE); PROTEIN,URINE NEGATIVE (NEGATIVE); URINE SPECIFIC GRAVITY 1.005; UROBILINOGEN,URINE NEGATIVE mg/dL (<2.0)
[2018-04-13] MEDS: GUAIFENESIN 600 MG TABLET.SA PO SCH (22:20)
[2018-04-14] MEDS: GABAPENTIN 400 MG CAPSULE PO SCH ×3 (05:43→21:54)
[2018-04-14] MEDS: METHYLPREDNISOLONE INJ 40 MG/1 ML SDV IV SCH ×3 (05:43→21:55)
[2018-04-14] MEDS: LANSOPRAZOLE 30 MG TAB.RAP.DR PO SCH (05:44)
[2018-04-14] MEDS: ALBUTEROL SULFATE 0.083% NEB 2.5 MG/3 ML AMPUL NEB SCH ×4 (08:14→20:08)
[2018-04-14] MEDS: GUAIFENESIN 600 MG TABLET.SA PO SCH ×2 (09:51→21:56)
[2018-04-14] MEDS: TIOTROPIUM BROMIDE DPI 5 CAP/KIT (18 MCG/CAP) IH SCH (09:52)
[2018-04-14] MEDS: CLONAZEPAM 1 MG TABLET PO SCH ×2 (09:52→21:55)
[2018-04-14] MEDS: ASPIRIN 81 MG TABLET, CHEWABLE PO SCH (09:52)
[2018-04-14] MEDS: ENOXAPARIN SODIUM INJ 40 MG/0.4 ML DISP.SYRIN SUBCUT SCH (09:52)
[2018-04-14] MEDS: BUDESONIDE/FORMOTEROL 80-4.5 MCG 60 PUFF/6.9 GM MDI IH SCH ×2 (09:52→18:46)
[2018-04-14] MEDS: DOCUSATE SODIUM 100 MG CAPSULE PO SCH (09:52)
[2018-04-14] MEDS ORDERED: CEFTRIAXONE 1 GM/D5W RTU 1 GM/50 ML RTUPB IV SCH (19:00)
--- NOTE | 2018-04-14 19:01 | PDOC PROGRESS REPORT ---
Subjective Progress Note for:: 04/14/18 Subjective:: Patient states her breathing is better She has no dysuria no fever no chills She states she did have hematuria prior to admission and had been treated for 6 days for UTI Reason For Visit: COPD EXACERBATION Physical Exam Vital Signs: Temp Pulse Resp BP Pulse Ox 97.8 F 77 18 118/67 94 04/14/18 15:02 04/14/18 16:10 04/14/18 16:10 04/14/18 15:02 04/14/18 16:10 Intake & Output 04/13/18 04/14/18 04/15/18 00:59 00:59 00:59 Intake Total 786 1790 1522 Output Total 800 700 Balance 786 990 822 Weight 63.6 kg 65.4 kg 65.1 kg General appearance: PRESENT: no acute distress, cooperative, well-developed, well-nourished Head exam: PRESENT: atraumatic, normocephalic Eye exam: PRESENT: conjunctiva pink, EOMI, PERRLA. ABSENT: scleral icterus Neck exam: ABSENT: carotid bruit, JVD, lymphadenopathy, thyromegaly Respiratory exam: PRESENT: clear to auscultation clive. ABSENT: rales, rhonchi, wheezes Cardiovascular exam: PRESENT: RRR. ABSENT: diastolic murmur, rubs, systolic murmur Pulses: PRESENT: normal dorsalis pedis pul GI/Abdominal exam: PRESENT: normal bowel sounds, soft. ABSENT: distended, guarding, mass, organolmegaly, rebound, tenderness Neurological exam: PRESENT: alert, awake, oriented to person, oriented to place , oriented to time, oriented to situation, CN II-XII grossly intact. ABSENT: motor sensory deficit Results Laboratory Results: 04/13/18 12:27 04/13/18 12:27 04/12/18 04:32 NT-Pro-B Natriuret Pep 75 Impressions: Chest X-Ray 04/11/18 13:58 IMPRESSION: NO ACUTE RADIOGRAPHIC FINDING IN THE CHEST. Chest/Abdomen CTA 04/11/18 14:38 IMPRESSION: CENTRILOBULAR EMPHYSEMA. CHRONIC BILATERAL INTERSTITIAL SCARRING. NO PULMONARY EMBOLI. Assessment & Plan - Diagnosis (1) UTI (urinary tract infection) Is this a current diagnosis for this admission?: Yes (2) COPD exacerbation Is this a current diagnosis for this admission?: Yes (3) DVT prophylaxis Is this a current diagnosis for this admission?: Yes (4) GERD (gastroesophageal reflux disease) Qualifiers: Esophagitis presence: esophagitis presence not specified Qualified Code(s) : K21.9 - Gastro-esophageal reflux disease without esophagitis Is this a current diagnosis for this admission?: Yes (5) Panic attacks Is this a current diagnosis for this admission?: Yes - Time Time Spent with patient: We will treat with ceftriaxone IV awaiting culture and sensitivity CT abdomen and pelvis no contrast to evaluate kidneys Continue present management COPD Continue O2 supplementation Patient likely will remain in the hospital for another 24-48 hours Time Spent with patient: 25-34 minutes
[2018-04-14] MEDS: CEFTRIAXONE SODIUM 1,000 MG in DEXTROSE 5%-WATER 50 ML IV SCH (23:09)
[2018-04-15] MEDS: LANSOPRAZOLE 30 MG TAB.RAP.DR PO SCH ×2 (06:27→16:51)
[2018-04-15] MEDS: GABAPENTIN 400 MG CAPSULE PO SCH ×3 (06:27→20:52)
[2018-04-15] MEDS: METHYLPREDNISOLONE INJ 40 MG/1 ML SDV IV SCH (06:27)
[2018-04-15] MEDS: ALBUTEROL SULFATE 0.083% NEB 2.5 MG/3 ML AMPUL NEB SCH ×4 (08:23→19:51)
[2018-04-15] MEDS: TIOTROPIUM BROMIDE DPI 5 CAP/KIT (18 MCG/CAP) IH SCH (09:34)
[2018-04-15] MEDS: CLONAZEPAM 1 MG TABLET PO SCH ×2 (09:34→20:52)
[2018-04-15] MEDS: BUDESONIDE/FORMOTEROL 80-4.5 MCG 60 PUFF/6.9 GM MDI IH SCH ×2 (09:35→18:46)
[2018-04-15] MEDS: DOCUSATE SODIUM 100 MG CAPSULE PO SCH (09:35)
[2018-04-15] MEDS: ASPIRIN 81 MG TABLET, CHEWABLE PO SCH (09:35)
[2018-04-15] MEDS: ENOXAPARIN SODIUM INJ 40 MG/0.4 ML DISP.SYRIN SUBCUT SCH (09:36)
[2018-04-15] MEDS: GUAIFENESIN 600 MG TABLET.SA PO SCH ×2 (09:42→20:53)
--- NOTE | 2018-04-15 13:03 | PDOC PROGRESS REPORT ---
Subjective Progress Note for:: 04/15/18 Subjective:: Patient states her breathing is better She has no dysuria no fever no chills She states she did have hematuria prior to admission and had been treated for 6 days for UTI 04/15 doing very well shortness of breath and wheezing improved oxygenation adequate on room air no specific complaints Reason For Visit: COPD EXACERBATION Physical Exam Vital Signs: Temp Pulse Resp BP Pulse Ox 98.9 F 77 18 132/68 H 95 04/15/18 08:47 04/15/18 11:30 04/15/18 11:30 04/15/18 08:47 04/15/18 11:30 Intake & Output 04/14/18 04/15/18 04/16/18 00:59 00:59 00:59 Intake Total 1790 1622 75 Output Total 800 700 500 Balance 990 922 -425 Weight 65.4 kg 65.1 kg 65.3 kg Results Laboratory Results: 04/13/18 12:27 04/13/18 12:27 04/13/18 13:55 Clean Catch Midstream Urine Culture - Final Proteus Mirabilis 04/12/18 04:32 NT-Pro-B Natriuret Pep 75 Impressions: Chest X-Ray 04/11/18 13:58 IMPRESSION: NO ACUTE RADIOGRAPHIC FINDING IN THE CHEST. Chest/Abdomen CTA 04/11/18 14:38 IMPRESSION: CENTRILOBULAR EMPHYSEMA. CHRONIC BILATERAL INTERSTITIAL SCARRING. NO PULMONARY EMBOLI. Assessment & Plan - Diagnosis (1) UTI (urinary tract infection) Is this a current diagnosis for this admission?: Yes Plan: 04/13/18 13:55 Urine Culture - Final Clean Catch Midstream Proteus Mirabilis Proteus sensitive to Ceftriaxone and Cipro continue Ceftriaxone CT abd and pelvis pending (2) COPD exacerbation Is this a current diagnosis for this admission?: Yes Plan: improved decrease steroids d/c O2 supplementation (3) DVT prophylaxis Is this a current diagnosis for this admission?: Yes (4) GERD (gastroesophageal reflux disease) Qualifiers: Esophagitis presence: esophagitis presence not specified Qualified Code(s) : K21.9 - Gastro-esophageal reflux disease without esophagitis Is this a current diagnosis for this admission?: Yes Plan: will add carafate (5) Panic attacks Is this a current diagnosis for this admission?: Yes - Time Time Spent with patient: patient may be d/c in am
--- NOTE | 2018-04-15 13:32 | RADIOLOGY REPORT (SQ) ---
EXAM DESCRIPTION: CT ABD/PELVIS NO ORAL OR IV COMPLETED DATE/TIME: 04/15/2018 1:09 pm REASON FOR STUDY: UTI hematuria- limited kidneys - right flank pain COMPARISON: CT angio chest 04/11/2018 CT abdomen pelvis 12/16/2016 TECHNIQUE: CT scan of the abdomen and pelvis performed without intravenous or oral contrast. Images reviewed with lung, soft tissue, and bone windows. Reconstructed coronal and sagittal MPR images revi ewed. All images stored on PACS. All CT scanners at this facility use dose modulation, iterative reconstruction, and/or weight based d osing when appropriate to reduce radiation dose to as low as reasonably achievable (ALARA). [facility]: Dose Right [facility]: CareDose [facility]: Dose Right [facility]: Teradose 4D [facility]: [employer] RADIATION DOSE: CT Rad equipment meets quality standard of care and radiation dose reduction techniq ues were employed. CTDIvol: 5.8 mGy. DLP: 298 mGy-cm.mGy. LIMITATIONS: None. FINDINGS: LOWER CHEST: No significant findings. No nodules or infiltrates. NON-CONTRASTED LIVER, SPLEEN, ADRENALS: Liver, spleen unremarkable. No dominant adrenal mass. Mild stable nodularity of the adrenal gland similar compared to 12/16/2016 CT. PANCREAS: No masses. No peripancreatic inflammatory changes. GALLBLADDER: Surgically absent RIGHT KIDNEY AND URETER: No suspicious masses. Assessment limited by lack of IV contrast. No signif icant calcifications. No hydronephrosis or hydroureter. LEFT KIDNEY AND URETER: No suspicious masses. Assessment limited by lack of IV contrast. No signifi cant calcifications. No hydronephrosis or hydroureter. AORTA AND RETROPERITONEUM: No aneurysm. No retroperitoneal masses or adenopathy. BOWEL AND PERITONEAL CAVITY: No obvious masses or inflammatory changes. No free fluid. APPENDIX: Normal. PELVIS, BLADDER, AND ABDOMINAL WALL:No abnormal masses. No free fluid. Bladder normal. Normal size f emale pelvic organs BONES: No significant findings. OTHER: No other significant finding. IMPRESSION: No CT evidence of urinary calculi, hydronephrosis, or hydroureter. No bladder stones. COMMENT: Quality ID # [id number]: Final reports with documentation of one or more dose reduction techniques (e.g., Automated exposure control, adjustment of the mA and/or kV according to patient size, use of iterative reconstruction technique) TECHNICAL DOCUMENTATION: JOB ID: [id number] [employer]- All Rights Reserved Reading location - IP/workstation name: [email or web address]
[2018-04-15] MEDS: SUCRALFATE 1 GM TABLET PO SCH ×2 (16:51→20:52)
[2018-04-15] MEDS: CEFTRIAXONE SODIUM 1,000 MG in DEXTROSE 5%-WATER 50 ML IV SCH (20:52)
[2018-04-16] MEDS: GABAPENTIN 400 MG CAPSULE PO SCH (06:41)
[2018-04-16] MEDS: SUCRALFATE 1 GM TABLET PO SCH ×2 (06:41→10:09)
[2018-04-16] MEDS: LANSOPRAZOLE 30 MG TAB.RAP.DR PO SCH (06:41)
[2018-04-16] MEDS ORDERED: ONDANSETRON 4 MG TAB.RAPDIS PO PRN (07:30)
[2018-04-16] MEDS ORDERED: ONDANSETRON HCL INJ/PF 4 MG/2 ML SDV IV PRN (07:30)
[2018-04-16] MEDS: ALBUTEROL SULFATE 0.083% NEB 2.5 MG/3 ML AMPUL NEB SCH ×2 (08:17→12:04)
[2018-04-16] MEDS ORDERED: PREDNISONE 20 MG TABLET PO SCH (10:00)
[2018-04-16] MEDS ORDERED: GUAIFENESIN 600 MG TABLET.SA PO SCH (10:00)
[2018-04-16] MEDS: CLONAZEPAM 1 MG TABLET PO SCH (10:08)
[2018-04-16] MEDS: TIOTROPIUM BROMIDE DPI 5 CAP/KIT (18 MCG/CAP) IH SCH (10:08)
[2018-04-16] MEDS: DOCUSATE SODIUM 100 MG CAPSULE PO SCH (10:08)
[2018-04-16] MEDS: ASPIRIN 81 MG TABLET, CHEWABLE PO SCH (10:08)
[2018-04-16] MEDS: BUDESONIDE/FORMOTEROL 80-4.5 MCG 60 PUFF/6.9 GM MDI IH SCH (10:11)
[2018-04-16] MEDS: ENOXAPARIN SODIUM INJ 40 MG/0.4 ML DISP.SYRIN SUBCUT SCH (10:12)
[2018-04-16 13:51] VITALS: BP 123/73
--- NOTE | 2018-04-17 18:55 | PDOC DISCHARGE SUMMARY ---
General - Admit/Disc Date/PCP Admission Date/Primary Care Provider: 04/11/18 18:09 Discharge Date: 04/16/18 - Discharge Diagnosis (1) UTI (urinary tract infection) Is this a current diagnosis for this admission?: Yes (2) COPD exacerbation Is this a current diagnosis for this admission?: Yes (3) DVT prophylaxis Is this a current diagnosis for this admission?: Yes (4) GERD (gastroesophageal reflux disease) Is this a current diagnosis for this admission?: Yes (5) Panic attacks Is this a current diagnosis for this admission?: Yes - Additional Information Resuscitation Status: Full Code Discharge Diet: As Tolerated Discharge Activity: Activity As Tolerated, Energy Conservation Prescriptions: Ciprofloxacin HCl [Cipro 250 mg Tablet] 1 tab PO BID #10 tab Lansoprazole [Prevacid 30 mg Odt Tablet] 30 mg PO BID@0600,1700 30 Days #60 tab. Prednisone [Deltasone 20 mg Tablet] 40 mg PO DAILY #8 tablet Sucralfate [Carafate 1 gm Tablet] 1 gm PO ACHS #40 tablet Home Medications: Albuterol Sulfate [Proair HFA Inhalation Aerosol 8.5 gm MDI] 2 puff IH Q6HP PRN 04/12/18 Aspirin [Ecotrin 81 mg EC Tablet] 81 mg PO DAILY 04/12/18 Budesonide/Formoterol Fumarate [Symbicort 80-4.5 Mcg Inhaler] 2 puff IH Q12 Clonazepam [Klonopin 1 mg Tablet] 1 mg PO Q12HP PRN 04/12/18 Gabapentin [Neurontin 400 mg Capsule] 400 mg PO DAILYP PRN 04/12/18 Linaclotide [Linzess] 290 mcg PO DAILYP PRN 04/12/18 Omeprazole 40 mg PO ACBRKFST 04/12/18 Tiotropium [place] [Spiriva Handihaler 5 Cap/Kit (18 Mcg/Cap)] 1 puff IH DAILY 04/12/18 Ciprofloxacin HCl [Cipro 250 mg Tablet] 1 tab PO BID #10 tab 04/16/18 Lansoprazole [Prevacid 30 mg Odt Tablet] 30 mg PO BID@0600,1700 30 Days #60 tab 04/16/18 Prednisone [Deltasone 20 mg Tablet] 40 mg PO DAILY #8 tablet 04/16/18 Sucralfate [Carafate 1 gm Tablet] 1 gm PO ACHS #40 tablet 04/16/18 History of Present Illness Patient complains of: shortness breath and cough History of Present Illness: BROOK GEORGE is a 62 year old female he patient is a 62 year old female with past medical history of Depression Panic attacks GERD Emphysema Tobacco dependence DVT She presented to the emergency room with a 3 day history of shortness of breath and cough with mucoid expectoration. She denies any fevers or chills. She smokes 2 cigarettes a day. Healthcare power of ip attorney is her mother Sonali. Phone #[phone]. She requests to be a full code. In the emergency room she was found to be satting 89% on room air. She was given nebs and steroids. Chest x-ray shows COPD no infiltrates or effusion or pulmonary edema. Hospital Course Hospital Course: Diagnosis (1) UTI (urinary tract infection) 04/13/18 13:55 Urine Culture - Final Clean Catch Midstream Proteus Mirabilis Proteus sensitive to Ceftriaxone and Cipro CT abdomen and pelvis was normal Patient was treated with Ceftriaxone IV and discharged on Cipro po (2) COPD exacerbation improved patient was discharged on prednisone taper She did not need supplemental O2 at discharge (3) GERD (gastroesophageal reflux disease) improved with PPI sand Carafate Physical Exam Vital Signs: Temp Pulse Resp BP Pulse Ox 98.1 F 80 16 123/73 95 04/16/18 13:44 04/16/18 13:44 04/16/18 13:44 04/16/18 13:44 04/16/18 13:44 Intake & Output 04/16/18 04/17/18 04/18/18 00:59 00:59 00:59 Intake Total 795 75 Output Total 3000 Balance -2205 75 Weight 65.3 kg General appearance: PRESENT: no acute distress, cooperative, well-developed, well-nourished Head exam: PRESENT: atraumatic, normocephalic Eye exam: PRESENT: conjunctiva pink, EOMI, PERRLA. ABSENT: scleral icterus Neck exam: ABSENT: carotid bruit, JVD, lymphadenopathy, thyromegaly Respiratory exam: PRESENT: clear to auscultation clive. ABSENT: rales, rhonchi, wheezes Cardiovascular exam: PRESENT: RRR. ABSENT: diastolic murmur, rubs, systolic murmur Pulses: PRESENT: normal dorsalis pedis pul GI/Abdominal exam: PRESENT: normal bowel sounds, soft. ABSENT: distended, guarding, mass, organolmegaly, rebound, tenderness Neurological exam: PRESENT: alert, awake, oriented to person, oriented to place , oriented to time, oriented to situation, CN II-XII grossly intact. ABSENT: motor sensory deficit Results Laboratory Results: 04/13/18 12:27 04/13/18 12:27 04/12/18 04:32 NT-Pro-B Natriuret Pep 75 Impressions: Chest X-Ray 04/11/18 13:58 IMPRESSION: NO ACUTE RADIOGRAPHIC FINDING IN THE CHEST. Chest/Abdomen CTA 04/11/18 14:38 IMPRESSION: CENTRILOBULAR EMPHYSEMA. CHRONIC BILATERAL INTERSTITIAL SCARRING. NO PULMONARY EMBOLI. Abdomen/Pelvis CT 04/15/18 08:00 IMPRESSION: No CT evidence of urinary calculi, hydronephrosis, or hydroureter. No bladder stones. Qualifiers - * PATIENT BEING DISCHARGED WITH ANY OF THE FOLLOWING DIAGNOSIS: No
== END 2018-04-16 14:14 | disposition home or self-care (01) | DRG 191 ==
LOC: ER 13:21 → EH 18:09 → 4N 21:49
PROVIDERS: ADMIT Internal Medicine; ATTEND Internal Medicine
PROC: 3E0F73Z Introduction of Anti-inflammatory into Respiratory Tract, Via Natural or Artificial Opening (ICD-10-PCS; principal; 2018-04-11)
DX: J43.9 Emphysema, unspecified (principal); N39.0 Urinary tract infection, site not specified; F32.9 Major depressive disorder, single episode, unspecified; K21.9 Gastro-esophageal reflux disease without esophagitis; B96.4 Proteus (mirabilis) (morganii) as the cause of diseases classified elsewhere; K59.00 Constipation, unspecified; M19.90 Unspecified osteoarthritis, unspecified site; R12 Heartburn; F41.0 Panic disorder [episodic paroxysmal anxiety]; F17.210 Nicotine dependence, cigarettes, uncomplicated; Z90.49 Acquired absence of other specified parts of digestive tract; Z86.718 Personal history of other venous thrombosis and embolism; Z82.49 Family history of ischemic heart disease and other diseases of the circulatory system; Z88.6 Allergy status to analgesic agent; Z91.81 History of falling
CPT/HCPCS: 36415; 71046; 71275; 74176; 80048; 81001; 82565; 83605; 83735; 83880; 84100; 84439; 84443; 84484; 85025; 85027; 85610; 85730; 87040; 87086; 87088; 87186; 93005; 93010; 94640; 94667; 94799; 99285; J0696; J1650; J2920; J3490; J7512; J7620

== ENCOUNTER 2018-07-31 22:26 | Emergency (ER) | payer MEDICAID ==
[2018-07-31] MEDS ORDERED: ONDANSETRON 4 MG TAB.RAPDIS PO ONE (23:21)
[2018-07-31] MEDS ORDERED: PHENAZOPYRIDINE HCL 100 MG TABLET PO ONE (23:21)
--- NOTE | 2018-07-31 23:21 | ER Document Report ---
ED Medical Screen (RME) - General Chief Complaint: Urinary Problem Stated Complaint: URINARY PROBLEMS Time Seen by Provider: 07/31/18 23:21 TRAVEL OUTSIDE OF THE U.S[place] IN LAST 30 DAYS: No - Related Data Allergies/Adverse Reactions: oxycodone [Oxycodone] Allergy (Mild, Verified 04/11/18 13:24) nausea, abdominal pain Past Medical History - Past Medical History Cardiac Medical History: Reports: Hx DVT Denies: Hx Coronary Artery Disease, Hx Heart Attack, Hx Hypertension Pulmonary Medical History: Reports: Hx Asthma, Hx Bronchitis, Hx COPD Denies: Hx Pneumonia Neurological Medical History: Denies: Hx Cerebrovascular Accident - Has had numbness in Lt arm x2 in 5 yrs; unable to move it at the time, Hx Seizures Renal/ Medical History: Denies: Hx Peritoneal Dialysis GI Medical History: Reports: Hx Gastroesophageal Reflux Disease Musculoskeltal Medical History: Reports Hx Arthritis - Fingers Psychiatric Medical History: Reports: Hx Depression Past Surgical History: Reports: Hx Cholecystectomy. Denies: Hx Hysterectomy, Hx Pacemaker - Immunizations Hx Diphtheria, Pertussis, Tetanus Vaccination: No History of Influenza Vaccine for 08/2017 - 01/2018 Season: Unknown Physical Exam - Vital signs Vitals: Temp Pulse Resp BP Pulse Ox 97.4 F 104 H 24 H 107/69 97 07/31/18 22:49 07/31/18 22:49 07/31/18 22:49 07/31/18 22:49 07/31/18 22:49 Course - Vital Signs Vital signs: Temp Pulse Resp BP Pulse Ox 97.4 F 104 H 24 H 107/69 97 07/31/18 22:49 07/31/18 22:49 07/31/18 22:49 07/31/18 22:49 07/31/18 22:49
--- NOTE | 2018-07-31 23:30 | ER Document Report ---
HPI - HPI Patient complains to provider of: Dysuria frequency and urgency Onset: Other - 8 days but worse today Onset/Duration: Persistent Pain Level: 5 Context: 62-year-old postmenopausal female that has had a bladder tacking in the past is complaining of supropubic discomfort, urinary dysuria, frequency, urgency with increased pain at the end of urination for 8 days. Worse today while she was trying to sing tonight. No fever or chills. No flank pain. Associated Symptoms: denies: Nausea, Vomiting Exacerbated by: Other - See above Relieved by: Denies Similar symptoms previously: Yes Recently seen / treated by doctor: No - ROS ROS below otherwise negative: Yes Systems Reviewed and Negative: Yes All other systems reviewed and negative Past Medical History - General Information source: Patient - Social History Smoking Status: Current Every Day Smoker Lives with: Alone Family History: CAD, COPD - Past Medical History Cardiac Medical History: Reports: Hx DVT Pulmonary Medical History: Reports: Hx Asthma, Hx Bronchitis, Hx COPD GI Medical History: Reports: Hx Gastroesophageal Reflux Disease Musculoskeletal Medical History: Reports Hx Arthritis - Fingers Psychiatric Medical History: Reports: Hx Depression Past Surgical History: Reports: Hx Cholecystectomy - Immunizations Hx Diphtheria, Pertussis, Tetanus Vaccination: No Hx Pneumococcal Vaccination: 12/01/15 Vertical Provider Document - CONSTITUTIONAL Agree With Documented VS: Yes Exam Limitations: No Limitations - INFECTION CONTROL TRAVEL OUTSIDE OF THE [place] IN LAST 30 DAYS: No - NECK Neck: Supple - RESPIRATORY Respiratory: Breath Sounds Normal, No Respiratory Distress - CARDIOVASCULAR Cardiovascular: Regular Rate, Regular Rhythm - GI/ABDOMEN Gastrointestinal: Abdomen Soft, Abdomen Non-Tender - BACK Back: Normal Inspection. negative: CVA Tenderness-Right, CVA Tenderness-Left - NEURO Level of Consciousness: Awake Course - Re-evaluation Re-evalutation: 07/31/18 23:54 Urinalysis has 15 WBCs and 1+ bacteria. The urine culture is pending. I will treat her with Macrobid and Pyridium for the urinary pain. She can follow-up to the emergency room if symptoms worsen over the weekend. 07/31/18 23:57 - Vital Signs Vital signs: Temp Pulse Resp BP Pulse Ox 97.4 F 104 H 24 H 107/69 97 07/31/18 22:49 07/31/18 22:49 07/31/18 22:49 07/31/18 22:49 07/31/18 22:49 Discharge - Discharge Clinical Impression: Urinary tract infection Condition: Good Disposition: HOME, SELF-CARE Instructions: Urinary Tract Infection ([facility]), Urinary Anesthetic Agent ([facility]), Nitrofurantoin ([facility]) Additional Instructions: macrobid antibiotic twice a day for a week Pyridium will take the urinary pain away you can take that 3 times a day for several days Drink plenty of fluids Return to the emergency room for worsening of the symptoms, fever, flank pain, vomiting. Urine culture is pending follow up with your provider at [facility] Prescriptions: Nitrofurantoin/Nitrofuran Mac [Macrobid 100 mg Capsule] 100 mg PO BID #14 capsule Phenazopyridine HCl [Pyridium 100 Mg Tablet] 100 mg PO TID #10 tablet
[2018-07-31 23:50] LABS: APPEARANCE,URINE CLEAR; BILIRUBIN,URINE NEGATIVE (NEGATIVE); COLOR,URINE YELLOW; GLUCOSE, URINE NEGATIVE (NEGATIVE); KETONES,URINE NEGATIVE (NEGATIVE); LEUKOCYTE ESTERASE,URINE SMALL (NEGATIVE); NITRITE,URINE NEGATIVE (NEGATIVE); PROTEIN,URINE NEGATIVE (NEGATIVE); URINE SPECIFIC GRAVITY 1.008; UROBILINOGEN,URINE NEGATIVE mg/dL (<2.0)
[2018-07-31] MEDS ORDERED: NITROFURANTOIN MONOHYD/M-CRYST 100 MG CAPSULE PO ONE (23:54)
[2018-08-01 00:19] VITALS: BP 92/67
== END 2018-08-01 00:19 | disposition home or self-care (01) ==
LOC: ER 22:26
DX: N39.0 Urinary tract infection, site not specified (principal); R30.0 Dysuria; R35.0 Frequency of micturition; R39.15 Urgency of urination; R10.30 Lower abdominal pain, unspecified; F17.200 Nicotine dependence, unspecified, uncomplicated; J44.9 Chronic obstructive pulmonary disease, unspecified
CPT/HCPCS: 99283; 87086; 87088; 81001; 87186; J3490 ×2; J8499

== ENCOUNTER 2018-09-24 10:20 | Emergency (ER) | payer MEDICAID ==
[2018-09-24] MEDS ORDERED: NORMAL SALINE 1000 ML 1,000 ML IV ONE (10:35)
--- NOTE | 2018-09-24 10:35 | ER Document Report ---
ED Medical Screen (RME) - General Chief Complaint: Breathing Difficulty Stated Complaint: BREATHING DIFFICULTY Time Seen by Provider: 09/24/18 10:31 TRAVEL OUTSIDE OF THE [place] IN LAST 30 DAYS: No - HPI Notes: 09/24/18 10:34 sob 1 week - Related Data Allergies/Adverse Reactions: oxycodone [Oxycodone] Allergy (Mild, Verified 09/24/18 10:31) nausea, abdominal pain Past Medical History - Social History Frequency of alcohol use: None Drug Abuse: None - Past Medical History Cardiac Medical History: Reports: Hx DVT Pulmonary Medical History: Reports: Hx Asthma, Hx Bronchitis, Hx COPD Renal/ Medical History: Denies: Hx Peritoneal Dialysis GI Medical History: Reports: Hx Gastroesophageal Reflux Disease Musculoskeltal Medical History: Reports Hx Arthritis - Fingers Psychiatric Medical History: Reports: Hx Depression Past Surgical History: Reports: Hx Cholecystectomy - Immunizations Hx Diphtheria, Pertussis, Tetanus Vaccination: No History of Influenza Vaccine for 08/2017 - 01/2018 Season: Unknown Review of Systems - Review of Systems Respiratory: Short of breath, Wheezing Physical Exam - Vital signs Vitals: Temp Pulse Resp BP Pulse Ox 99.4 F 123 H 28 H 124/79 92 09/24/18 10:29 09/24/18 10:29 09/24/18 10:29 09/24/18 10:29 09/24/18 10:29 - Respiratory Respiratory status: Tachypnea Breath sounds: Wheezing Chest palpation: Normal - Cardiovascular Rhythm: Regular Heart sounds: Normal auscultation Course - Vital Signs Vital signs: Temp Pulse Resp BP Pulse Ox 99.4 F 123 H 28 H 124/79 92 09/24/18 10:29 09/24/18 10:29 09/24/18 10:29 09/24/18 10:29 09/24/18 10:29 Doctor's Discharge - Discharge Referrals: PATY HERNÁNDEZ NP [Primary Care Provider] - Follow up as needed
[2018-09-24] MEDS ORDERED: MAGNESIUM SULFATE/D5W 1 GM/100 ML RTUPB IV ONE (10:36)
[2018-09-24] MEDS ORDERED: IPRATROPIUM/ALBUTEROL 0.5-2.5 MG/3 ML AMPUL NEB ONE (10:36)
[2018-09-24 11:20] LABS: ABSOLUTE EOSINOPHILS # (AUTO) 0.3 10^3/uL (0.0-0.6); ABSOLUTE LYMPHOCYTES (AUTO) 1.2 10^3/uL (0.5-4.7); ABSOLUTE MONOCYTES (AUTO) 0.7 10^3/uL (0.1-1.4); ABSOLUTE NEUT (AUTO) 14.4 10^3/uL (1.7-8.2); BASOPHILS % (AUTO) 0.2 % (0-2); EOSINOPHILS % (AUTO) 1.8 % (0-6); HEMOGLOBIN 13.6 g/dL (12.0-15.5); MEAN CORPUSCULAR HGB CONC 33.1 g/dL (32.0-36.0); MEAN CORPUSCULAR VOLUME 87 fl (80-97); MONOCYTES % (AUTO) 4.1 % (3-13); PLATELET COUNT 282 10^3/uL (150-450); RED BLOOD COUNT 4.69 10^6/uL (3.72-5.28); RED CELL DISTRIBUTION WIDTH 15.2 % (11.5-14.0); SEGMENTED NEUTROPHILS % (AUTO) 86.9 % (42-78); TOTAL CELLS COUNTED % (AUTO) 100 %; WHITE BLOOD COUNT 16.5 10^3/uL (4.0-10.5)
[2018-09-24 11:21] LABS: VENOUS BLOOD BASE EXCESS 2.1 mmol/L; VENOUS BLOOD HCO3 27.1 mmol/L (20-32); VENOUS BLOOD PCO2 43.6 mmHg (35-63); VENOUS BLOOD PH 7.41 (7.30-7.42)
[2018-09-24 11:25] LABS: INTERNATIONAL RATION (INR) 0.95; PROTHROMBIN TIME 13.2 SEC (11.4-15.4)
[2018-09-24 11:40] LABS: ALANINE AMINOTRANSFERASE 20 U/L (9-52); ALBUMIN 4.2 g/dL (3.5-5.0); ALKALINE PHOSPHATASE 105 U/L (38-126); ANION GAP 13 (5-19); ASPARTATE AMINO TRANSFERASE 30 U/L (14-36); BILIRUBIN,DIRECT 0.3 mg/dL (0.0-0.4); BILIRUBIN,TOTAL 0.9 mg/dL (0.2-1.3); BLOOD UREA NITROGEN 7 mg/dL (7-20); CALCIUM 9.5 mg/dL (8.4-10.2); CARBON DIOXIDE 27 mmol/L (22-30); CHLORIDE 104 mmol/L (98-107); GLUCOSE 116 mg/dL (75-110); POTASSIUM 3.7 mmol/L (3.6-5.0); SODIUM 143.5 mmol/L (137-145); TOTAL PROTEIN 7.1 g/dL (6.3-8.2)
[2018-09-24 11:51] LABS: NT PRO BNP 145 pg/mL (5-900)
[2018-09-24 11:52] LABS: TROPONIN I < 0.012 ng/mL
[2018-09-24 12:11] LABS: APPEARANCE,URINE CLEAR; BILIRUBIN,URINE NEGATIVE (NEGATIVE); COLOR,URINE YELLOW; GLUCOSE, URINE NEGATIVE (NEGATIVE); KETONES,URINE NEGATIVE (NEGATIVE); LEUKOCYTE ESTERASE,URINE NEGATIVE (NEGATIVE); NITRITE,URINE NEGATIVE (NEGATIVE); PROTEIN,URINE NEGATIVE (NEGATIVE); URINE SPECIFIC GRAVITY 1.008; UROBILINOGEN,URINE NEGATIVE mg/dL (<2.0)
--- NOTE | 2018-09-24 12:18 | RADIOLOGY REPORT (SQ) ---
EXAM DESCRIPTION: CHEST SINGLE VIEW COMPLETED DATE/TIME: 09/24/2018 11:59 am REASON FOR STUDY: sob COMPARISON: 04/11/2018 EXAM PARAMETERS: NUMBER OF VIEWS: One view. TECHNIQUE: Single frontal radiographic view of the chest acquired. RADIATION DOSE: NA LIMITATIONS: None. FINDINGS: LUNGS AND PLEURA: No opacities, masses or pneumothorax. No pleural effusion. MEDIASTINUM AND HILAR STRUCTURES: No masses. Contour normal. HEART AND VASCULAR STRUCTURES: Heart normal in size. Normal vasculature. BONES: No acute findings. HARDWARE: None in the chest. OTHER: No other significant finding. IMPRESSION: NO ACUTE RADIOGRAPHIC FINDING IN THE CHEST. TECHNICAL DOCUMENTATION: JOB ID: [id number] [address] [employer]- All Rights Reserved Reading location - IP/workstation name: [email or web address]
[2018-09-24] MEDS ORDERED: ALBUTEROL SULFATE 0.083% NEB 2.5 MG/3 ML AMPUL NEB ONE ×2 (13:25→14:45)
[2018-09-24] MEDS ORDERED: METHYLPREDNISOLONE INJ 125 MG/2 ML SDV IV ONE (13:26)
--- NOTE | 2018-09-24 13:27 | ER Document Report ---
ED Respiratory Problem - General Mode of Arrival: Ambulatory Information source: Patient TRAVEL OUTSIDE OF THE [place] IN LAST 30 DAYS: No <PADMINI HARVEY - Last Filed: 09/24/18 13:22> <CLARICE WETZEL - Last Filed: 09/24/18 15:30> - General Chief Complaint: Breathing Difficulty Stated Complaint: BREATHING DIFFICULTY Time Seen by Provider: 09/24/18 10:31 Notes: Patient is a 63-year-old female that presents to the emergency department today with complaints of shortness of breath for the last 2 days. Patient states yesterday she developed generalized body aches and was "unable to walk to the kitchen in her mobile home because she was so short of breath". Patient has an extensive smoking history with COPD. Patient states she stopped smoking 1 month ago. Patient uses Symbicort and Pro Air at home for her COPD. (PADMINI HARVEY) - Related Data Allergies/Adverse Reactions: oxycodone [Oxycodone] Allergy (Mild, Verified 09/24/18 10:31) nausea, abdominal pain Past Medical History - General Information source: Patient - Social History Smoking Status: Former Smoker - quit x1 month ago Cigarette use (# per day): No Frequency of alcohol use: None Drug Abuse: None Lives with: Family Family History: Reviewed & Not Pertinent, CAD, COPD Patient has suicidal ideation: No Patient has homicidal ideation: No - Past Medical History Cardiac Medical History: Reports: Hx DVT Pulmonary Medical History: Reports: Hx Asthma, Hx Bronchitis, Hx COPD GI Medical History: Reports: Hx Gastroesophageal Reflux Disease Musculoskeletal Medical History: Reports Hx Arthritis - Fingers Psychiatric Medical History: Reports: Hx Depression Past Surgical History: Reports: Hx Cholecystectomy - Immunizations Hx Diphtheria, Pertussis, Tetanus Vaccination: No Hx Pneumococcal Vaccination: 12/01/15 <PADMINI HARVEY - Last Filed: 09/24/18 13:22> Review of Systems - Review of Systems Constitutional: No symptoms reported EENT: No symptoms reported Cardiovascular: No symptoms reported Respiratory: See HPI, Short of breath, Wheezing Gastrointestinal: No symptoms reported Genitourinary: No symptoms reported Female Genitourinary: No symptoms reported Musculoskeletal: No symptoms reported Skin: No symptoms reported Hematologic/Lymphatic: No symptoms reported Neurological/Psychological: No symptoms reported -: Yes All other systems reviewed and negative <PADMINI HARVEY - Last Filed: 09/24/18 13:22> Physical Exam <PADMINI HARVEY - Last Filed: 09/24/18 13:22> <CLARICE WETZEL - Last Filed: 09/24/18 15:30> - Vital signs Vitals: Temp Pulse Resp BP Pulse Ox 99.4 F 123 H 28 H 124/79 92 09/24/18 10:29 09/24/18 10:29 09/24/18 10:29 09/24/18 10:29 09/24/18 10:29 - Notes Notes: Physical Exam: General: Alert, appears well. HEENT: Normocephalic. Atraumatic. PERRL. Extraocular movements intact. Oropharynx clear. Neck: Supple. Non-tender. Respiratory: No respiratory distress. Slight expiratory high pitched wheezing bilaterally. Speaks throughout the exam in extremely lengthy sentences without any difficulty. Cardiovascular: Regular rate and rhythm. Abdominal: Normal Inspection. Non-tender. No distension. Normal Bowel Sounds. Back: Non-tender. No deformity or step off. Extremities: Moves all four extremities. Upper extremities: Normal inspection. Normal ROM. Lower extremities: Normal inspection. No edema. Normal ROM. Neurological: Normal cognition. AAOx4. Normal speech. Psychological: Normal affect. Normal Mood. Skin: Warm. Dry. Normal color. (PADMINI HARVEY) Course - Laboratory Result Diagrams: 09/24/18 10:51 09/24/18 10:51 <PADMINI HARVEY - Last Filed: 09/24/18 13:22> - Laboratory Result Diagrams: 09/24/18 10:51 09/24/18 10:51 - Diagnostic Test Radiology reviewed: Image reviewed, Reports reviewed - Chest x-ray does not show any acute findings - EKG Interpretation by [facility] EKG shows normal: Sinus rhythm, [place], Intervals, ST-T Waves. abnormal: QRS Complexes - Borderline R wave progression in the anterior leads Rate: Tachycardia - 102 <CLARICE WETZEL - Last Filed: 09/24/18 15:30> - Re-evaluation Re-evalutation: 09/24/18 15:27 At this time, the patient talks in such long sentences that it is impossible to answer her questions or get any kind of words in. She also pauses between her sentences by less than a second. She is obviously not dyspneic. She and her friend do repeatedly asked questions about a urine culture they received that is over 6 weeks old and keep trying to tell me it was from bacteria in the blood. They also have a recent prescription bottle of Macrodantin which she claims she had allergic reaction to, but she has received Macrodantin in the recent past without problems. She was also on Ceftin about 2 months ago. (CLARICE WETZEL) - Vital Signs Vital signs: Temp Pulse Resp BP Pulse Ox 99.4 F 123 H 22 H 139/81 H 95 09/24/18 10:29 09/24/18 10:29 09/24/18 13:01 09/24/18 13:01 09/24/18 13:01 - Laboratory Laboratory results interpreted by me: 09/24/18 09/24/18 10:51 10:51 WBC 16.5 H RDW 15.2 H Seg Neutrophils % 86.9 H Lymphocytes % 7.0 L Absolute Neutrophils 14.4 H Glucose 116 H Discharge <PADMINI HARVEY - Last Filed: 09/24/18 13:22> <CLARICE WETZEL - Last Filed: 09/24/18 15:30> - Discharge Clinical Impression: Acute exacerbation of chronic obstructive pulmonary disease (COPD) Condition: Stable Disposition: HOME, SELF-CARE Additional Instructions: Take the medication as prescribed. Start the prednisone tomorrow. Drink plenty of fluids. Follow-up with your doctor if not improving. RETURN TO THE EMERGENCY ROOM IF ANY NEW OR WORSENING SYMPTOMS. Prescriptions: Albuterol Sulfate [Proair HFA] 1 - 2 puff IH Q4 PRN #1 inhaler PRN Reason: Doxycycline Hyclate 100 mg PO BID #14 tablet Prednisone [Deltasone 10 mg Tablet] 10 mg PO ASDIR PRN #21 tablet PRN Reason: Referrals: PATY HERNÁNDEZ NP [Primary Care Provider] - Follow up as needed Scribe Attestation: 09/24/18 14:48 I personally performed the services described in the documentation, reviewed and edited the documentation which was dictated to the scribe in my presence, and it accurately records my words and actions. (CLARICE WETZEL) Scribe Documentation - Scribe Written by Alix:: Alix Harrell, 09/24/2018 1330 acting as scribe for :: Joycelyn <PADMINI HARVEY - Last Filed: 09/24/18 13:22>
[2018-09-24 13:42] VITALS: BP 139/81
[2018-09-24] MEDS ORDERED: DOXYCYCLINE HYCLATE 100 MG TABLET PO ONE (14:46)
[2018-09-24] MEDS ORDERED: PREDNISONE 20 MG TABLET PO ONE (14:46)
--- NOTE | 2018-09-24 21:51 | EKG REPORT ---
SEVERITY:- BORDERLINE ECG - SINUS TACHYCARDIA BORDERLINE R WAVE PROGRESSION, ANTERIOR LEADS : Confirmed by: Jazmín Hagen 24-Sep-2018 21:50:35
== END 2018-09-24 15:38 | disposition home or self-care (01) ==
LOC: ER 10:20
DX: J44.1 Chronic obstructive pulmonary disease with (acute) exacerbation (principal); K21.9 Gastro-esophageal reflux disease without esophagitis; M19.90 Unspecified osteoarthritis, unspecified site; F32.9 Major depressive disorder, single episode, unspecified; Z87.891 Personal history of nicotine dependence; Z88.8 Allergy status to other drugs, medicaments and biological substances; Z86.718 Personal history of other venous thrombosis and embolism; Z90.49 Acquired absence of other specified parts of digestive tract
CPT/HCPCS: 93005; 94640 ×2; 99285; 96375; 96365; 36415; 87040; 87086; 82962; 83735; 85025; 85610; 80053; 81001; 84484; 82803; 83605; 83880; 71045; 93010; J3490; J2930; J3475; J7512; J7030; J7620

== ENCOUNTER → 2018-12-10 | Outpatient (CLI) | payer OTHER ==
[2018-12-10 11:13] LABS: ABSOLUTE EOSINOPHILS # (AUTO) 0.1 10^3/uL (0.0-0.6); ABSOLUTE LYMPHOCYTES (AUTO) 1.9 10^3/uL (0.5-4.7); ABSOLUTE MONOCYTES (AUTO) 0.3 10^3/uL (0.1-1.4); ABSOLUTE NEUT (AUTO) 3.2 10^3/uL (1.7-8.2); BASOPHILS % (AUTO) 0.7 % (0-2); EOSINOPHILS % (AUTO) 1.6 % (0-6); HEMATOCRIT 40.4 % (36.0-47.0); HEMOGLOBIN 13.5 g/dL (12.0-15.5); LYMPHOCYTES % (AUTO) 34.8 % (13-45); MEAN CORPUSCULAR HEMOGLOBIN 29.2 pg (27.0-33.4); MEAN CORPUSCULAR HGB CONC 33.4 g/dL (32.0-36.0); MEAN CORPUSCULAR VOLUME 87 fl (80-97); PLATELET COUNT 284 10^3/uL (150-450); RED BLOOD COUNT 4.63 10^6/uL (3.72-5.28); RED CELL DISTRIBUTION WIDTH 14.5 % (11.5-14.0); SEGMENTED NEUTROPHILS % (AUTO) 57.9 % (42-78); TOTAL CELLS COUNTED % (AUTO) 100 %; WHITE BLOOD COUNT 5.6 10^3/uL (4.0-10.5)
[2018-12-10 11:33] LABS: ALANINE AMINOTRANSFERASE 17 U/L (9-52); ALBUMIN 4.1 g/dL (3.5-5.0); ALKALINE PHOSPHATASE 116 U/L (38-126); ANION GAP 6 (5-19); ASPARTATE AMINO TRANSFERASE 20 U/L (14-36); BILIRUBIN,DIRECT 0.1 mg/dL (0.0-0.4); BILIRUBIN,TOTAL 0.3 mg/dL (0.2-1.3); BLOOD UREA NITROGEN 13 mg/dL (7-20); CALCIUM 9.5 mg/dL (8.4-10.2); CARBON DIOXIDE 30 mmol/L (22-30); CHLORIDE 106 mmol/L (98-107); CHOLESTEROL 227.48 mg/dL (0-200); GLUCOSE 104 mg/dL (75-110); POTASSIUM 4.2 mmol/L (3.6-5.0); SODIUM 142.1 mmol/L (137-145); TOTAL PROTEIN 6.6 g/dL (6.3-8.2); TRIGLYCERIDES 79 mg/dL (<150)
[2018-12-10 11:44] LABS: DIRECT LDL 128 mg/dL (<100)
== END ==
LOC: CCC 10:44
DX: J44.9 Chronic obstructive pulmonary disease, unspecified (principal)
CPT/HCPCS: 36415; 80053; 80061; 83036; 84443; 85025

== ENCOUNTER 2019-03-20 20:54 | Emergency (ER) | payer OTHER ==
--- NOTE | 2019-03-20 22:21 | ER Document Report ---
ED General - General Mode of Arrival: Wheelchair Information source: Patient TRAVEL OUTSIDE OF THE [place] IN LAST 30 DAYS: No <ZAIDA MULLIGAN - Last Filed: 03/21/19 06:11> <MARIELENA HORNER - Last Filed: 03/21/19 09:29> - General Chief Complaint: Leg Swelling Stated Complaint: LEG SWELLING,LEFT ARM PAIN,CHEST PAIN Time Seen by Provider: 03/20/19 21:48 Primary Care Provider: [facility] [Primary Care Provider] - Follow up as needed Notes: Patient is a 63-year-old female presenting to the emergency department with multiple complaints today. Patient reports low back pain that is chronic but w orse lately. She denies any falls or new trauma to the area. She also reports left arm pain that is been going on for 2 weeks. Left leg swelling for 3 to 4 days. She reports history of DVTs and thinks that she may have another one. She also reports a pulsating chest pain and left breast pain. She states she has indigestion every day. She also states that she was placed on new medications for cholesterol and blood pressure 2 weeks ago. Patient reports past medical history of COPD, CHF, anxiety and DVT. Patient states that she stopped taking Xarelto 2 years ago, states that she takes 81 mg of aspirin daily. (ZAIDA MULLIGAN) - Related Data Allergies/Adverse Reactions: oxycodone [Oxycodone] Allergy (Mild, Verified 09/24/18 10:31) nausea, abdominal pain Past Medical History - General Information source: Patient - Social History Smoking Status: Never Smoker Frequency of alcohol use: None Drug Abuse: None Family History: Reviewed & Not Pertinent, CAD, COPD - Past Medical History Cardiac Medical History: Reports: Hx DVT Pulmonary Medical History: Reports: Hx Asthma, Hx Bronchitis, Hx COPD Renal/ Medical History: Denies: Hx Peritoneal Dialysis GI Medical History: Reports: Hx Gastroesophageal Reflux Disease Musculoskeletal Medical History: Reports Hx Arthritis - Fingers Psychiatric Medical History: Reports: Hx Depression Past Surgical History: Reports: Hx Cholecystectomy - Immunizations Hx Diphtheria, Pertussis, Tetanus Vaccination: No Hx Pneumococcal Vaccination: 12/01/15 <ZAIDA MULLIGAN - Last Filed: 03/21/19 06:11> Review of Systems - Review of Systems Constitutional: See HPI EENT: No symptoms reported Cardiovascular: See HPI Respiratory: See HPI Gastrointestinal: No symptoms reported Genitourinary: See HPI Female Genitourinary: No symptoms reported Musculoskeletal: See HPI Skin: No symptoms reported Hematologic/Lymphatic: No symptoms reported Neurological/Psychological: No symptoms reported <ZAIDA MULLIGAN - Last Filed: 03/21/19 06:11> Physical Exam <ZAIDA MULLIGAN - Last Filed: 03/21/19 06:11> - Vital signs Vitals: Temp Pulse Resp BP Pulse Ox 98.1 F 87 20 151/82 H 95 03/20/19 21:07 03/20/19 21:07 03/20/19 21:07 03/20/19 21:07 03/20/19 21:07 - Notes Notes: PHYSICAL EXAMINATION: GENERAL: Well-appearing, anxious, well-nourished and in no acute distress. HEAD: Atraumatic, normocephalic. EYES: Pupils equal round and reactive to light, extraocular movements intact, conjunctiva are normal. ENT: Nares patent, oropharynx clear without exudates. Moist mucous membranes. NECK: Normal range of motion, supple without lymphadenopathy LUNGS: Mild scattered expiratory wheezes. Mildly increased work of breathing. HEART: Regular rate and rhythm without murmurs ABDOMEN: Soft, nontender, nondistended abdomen. No guarding, no rebound. No masses appreciated. Female : No CVAT. Musculoskeletal: Normal range of motion, no pitting or edema. No cyanosis. Mild swelling noted to left lower extremity. Tenderness to palpation to NEUROLOGICAL: Cranial nerves grossly intact. Normal speech, normal gait. Normal sensory, motor exams PSYCH: Normal mood, normal affect. SKIN: Warm, Dry, normal turgor, no rashes or lesions noted. (ZAIDA MULLIGAN) Course - Laboratory Result Diagrams: 03/20/19 23:50 03/20/19 23:50 <ZAIDA MULLIGAN - Last Filed: 03/21/19 06:11> - Laboratory Result Diagrams: 03/20/19 23:50 03/20/19 23:50 <MARIELENA HORNER - Last Filed: 03/21/19 09:29> - Re-evaluation Re-evalutation: CBC and CMP are unremarkable. D-dimer mildly elevated at 0.61. Patient does have a history of DVT. Patient was sent for a CTA of the chest, this was also negative. Chest x-ray normal. EKG was performed and shows a sinus rhythm, rate of 88, QTc 441, no ST segment elevations or depressions to suggest ischemia. EKG is unchanged from previous on file. Patient appears to be very anxious, states that she has a history of anxiety and her anxiety worsens when she is concerned about her health. Patient only has very mild leg swelling to left lower extremity however she reports pain to bilateral extremities that is similar to when she had DVTs in the past. Venous Doppler is not available at this time. This was discussed with patient. Patient agrees to stay until the morning to have venous Doppler studies done of her bilateral legs. If the studies are negative she will be discharged home. If they are positive she will be started on anticoagulation therapy and discharged home with plans to follow- up with her primary. Handoff given to ALEM Baron pending venous Doppler. (ZAIDA MULLIGAN) 03/21/19 09:19 Venous doppler negative b/l. Direction per prev provider that was already reviewed with patient. Pt in agreement Return precautions reviewed (MARIELENA HORNER) - Vital Signs Vital signs: Temp Pulse Resp BP Pulse Ox 98.1 F 87 15 141/89 H 95 03/20/19 21:07 03/20/19 21:07 03/21/19 08:01 03/21/19 08:01 03/21/19 08:34 - Laboratory Laboratory results interpreted by me: 03/20/19 03/20/19 23:50 23:50 RDW 14.3 H D-Dimer 0.63 H Discharge <ZAIDA MULLIGAN - Last Filed: 03/21/19 06:11> <MARIELENA HORNER - Last Filed: 03/21/19 09:29> - Discharge Clinical Impression: Atypical chest pain, Bilateral lower extremity pain Condition: Stable Disposition: HOME, SELF-CARE Additional Instructions: Maintain adequate fluid and food intake Take home medications as directed Healthy diet Monitor blood pressure daily and keep a log Monitor symptoms for any acute changes Recheck with your PCM in 2-3 days Consider a follow-up with cardiology Return to the ED with any worsening symptoms and/or development of fever, headache, chest pain, palpitations, syncope, shortness of breath, trouble breathing, abdominal pain, n/v/d, blood in stool/urine, loss of control of bowel/bladder, urinary retention, muscle weakness/paralysis, numbness/tingling, or other worsening symptoms that are concerning to you. Forms: Elevated Blood Pressure Referrals: [facility] [Primary Care Provider] - Follow up as needed GUCCI DAMIAN MD [ACTIVE STAFF] - Follow up as needed
--- NOTE | 2019-03-20 23:03 | RADIOLOGY REPORT (SQ) ---
EXAM DESCRIPTION: XR CHEST 1 VIEW COMPLETED DATE/TME: 03/20/2019 22:18 CLINICAL HISTORY: 63 years, Female, chest pain, shortness of breath COMPARISON: 04/11/2018 chest NUMBER OF VIEWS: 1 TECHNIQUE: Portable chest LIMITATIONS: None. FINDINGS: Heart size is normal. Osteopenia. Lungs clear. No pneumothorax IMPRESSION: Negative chest copyright 2010 [employer]- All Rights Reserved
[2019-03-20 23:55] LABS: APPEARANCE,URINE CLEAR; BILIRUBIN,URINE NEGATIVE (NEGATIVE); COLOR,URINE STRAW; GLUCOSE, URINE NEGATIVE (NEGATIVE); KETONES,URINE NEGATIVE (NEGATIVE); LEUKOCYTE ESTERASE,URINE NEGATIVE (NEGATIVE); NITRITE,URINE NEGATIVE (NEGATIVE); PROTEIN,URINE NEGATIVE (NEGATIVE); URINE SPECIFIC GRAVITY 1.009; UROBILINOGEN,URINE NEGATIVE mg/dL (<2.0)
[2019-03-21 00:01] LABS: ABSOLUTE BASOPHILS # (AUTO) 0.1 10^3/uL (0.0-0.2); ABSOLUTE EOSINOPHILS # (AUTO) 0.2 10^3/uL (0.0-0.6); ABSOLUTE LYMPHOCYTES (AUTO) 2.4 10^3/uL (0.5-4.7); ABSOLUTE MONOCYTES (AUTO) 0.5 10^3/uL (0.1-1.4); ABSOLUTE NEUT (AUTO) 3.7 10^3/uL (1.7-8.2); BASOPHILS % (AUTO) 1.3 % (0-2); EOSINOPHILS % (AUTO) 2.7 % (0-6); HEMATOCRIT 37.3 % (36.0-47.0); HEMOGLOBIN 12.6 g/dL (12.0-15.5); LYMPHOCYTES % (AUTO) 35.4 % (13-45); MEAN CORPUSCULAR HGB CONC 33.7 g/dL (32.0-36.0); MEAN CORPUSCULAR VOLUME 86 fl (80-97); MONOCYTES % (AUTO) 6.7 % (3-13); PLATELET COUNT 299 10^3/uL (150-450); RED BLOOD COUNT 4.33 10^6/uL (3.72-5.28); RED CELL DISTRIBUTION WIDTH 14.3 % (11.5-14.0); SEGMENTED NEUTROPHILS % (AUTO) 53.9 % (42-78); TOTAL CELLS COUNTED % (AUTO) 100 %; WHITE BLOOD COUNT 6.9 10^3/uL (4.0-10.5)
[2019-03-21 00:22] LABS: ALANINE AMINOTRANSFERASE 25 U/L (9-52); ALBUMIN 3.9 g/dL (3.5-5.0); ALKALINE PHOSPHATASE 105 U/L (38-126); ANION GAP 8 (5-19); ASPARTATE AMINO TRANSFERASE 23 U/L (14-36); BILIRUBIN,DIRECT 0.3 mg/dL (0.0-0.4); BILIRUBIN,TOTAL 0.3 mg/dL (0.2-1.3); BLOOD UREA NITROGEN 12 mg/dL (7-20); CALCIUM 9.2 mg/dL (8.4-10.2); CARBON DIOXIDE 28 mmol/L (22-30); CHLORIDE 104 mmol/L (98-107); GLUCOSE 103 mg/dL (75-110); LIPASE 139.2 U/L (23-300); POTASSIUM 3.9 mmol/L (3.6-5.0); SODIUM 139.8 mmol/L (137-145); TOTAL PROTEIN 6.8 g/dL (6.3-8.2)
--- NOTE | 2019-03-21 01:37 | RADIOLOGY REPORT (SQ) ---
EXAM DESCRIPTION: CT CHEST ANGIOGRAPHY WITHOUT THEN WITH IV CONTRAST COMPLETED DATE/TME: 03/21/2019 00:37 CLINICAL HISTORY: 63 years, Female, sob / cp / eval PE / Hx +DVT COMPARISON: 04/11/2018 CTA TECHNIQUE: 1029 Images stored on PACS. All CT scanners at this facility use dose modulation, iterative reconstruction, and/or weight based dosing when appropriate to reduce radiation dose to as low as reasonably achievable (ALARA). Axial images with coronal and sagittal MIPS reconstructions [facility]: Dose Right [facility]: CareDose [facility]: Dose Right [facility]: Teradose 4D [facility]: [employer] LIMITATIONS: None. FINDINGS: The mediastinal vasculature enhances normally. There is no intraluminal filling defect to suggest pulmonary embolus. Negative for thoracic aortic aneurysm or dissection. No mediastinal or hilar adenopathy. Limited evaluation of the upper abdomen shows fatty infiltrative change to the liver. Heart and pericardium are unremarkable. Osseous structures grossly intact. No pneumothorax. Mild/moderate emphysematous changes in the upper lobes and apices. Lungs are clear IMPRESSION: Negative for acute intrathoracic process. Mild to moderate emphysematous change TECHNICAL DOCUMENTATION: Quality ID # [id number]: Final reports with documentation of one or more dose reduction techniques (e.g., Automated exposure control, adjustment of the mA and/or kV according to patient size, use of iterative reconstruction technique) copyright 2011 [employer]- All Rights Reserved
[2019-03-21] MEDS ORDERED: MAG HYDROX/AL HYDROX/SIMETH SUSP 30 ML UDCUP PO ONE (03:07)
[2019-03-21] MEDS ORDERED: METOCLOPRAMIDE HCL ORAL SOLN 10 MG/10 ML UDCUP PO ONE (03:08)
[2019-03-21] MEDS ORDERED: LIDOCAINE 2% VISCOUS SOLN 20 ML UDCUP PO ONE (03:08)
[2019-03-21] MEDS ORDERED: IPRATROPIUM/ALBUTEROL 0.5-2.5 MG/3 ML AMPUL NEB ONE (05:07)
[2019-03-21] MEDS ORDERED: FAMOTIDINE INJ/PF 20 MG/2 ML SDV IV ONE (09:02)
[2019-03-21] MEDS ORDERED: ASPIRIN 81 MG TABLET, ENT COATED PO ONE (09:02)
[2019-03-21 09:39] VITALS: BP 109/60
--- NOTE | 2019-03-21 09:55 | RADIOLOGY REPORT (SQ) ---
EXAM DESCRIPTION: VENOUS BILATERAL LOWER COMPLETED DATE/TIME: 03/21/2019 9:39 am REASON FOR STUDY: hx dvt, pain/swelling COMPARISON: None. TECHNIQUE: Dynamic and static marks scale and color images acquired of both lower extremity venous sy stems. Selected spectral images acquired with additional compression and augmentation maneuvers. Imag es stored on PACS. LIMITATIONS: None. FINDINGS: RIGHT LEG COMMON FEMORAL AND FEMORAL: Normal phasicity, compression and augmentation. No visualized echogenic m aterial on marks scale. No defects on color images. POPLITEAL: Normal compression and augmentation. No visualized echogenic material on marks scale. No de fects on color images. CALF VESSELS: Normal compression and augmentation. No visualized echogenic material on marks scale. No defects on color image. GSV AND SSV: Normal compression. No visualized echogenic material on marks scale. No defects on color images. ANY DEEP VENOUS INSUFFICIENCY: Not evaluated. ANY EVIDENCE OF POPLITEAL CYST: No. OTHER: No other significant finding. LEFT LEG COMMON FEMORAL AND FEMORAL: Normal phasicity, compression and augmentation. No visualized echogenic m aterial on marks scale. No defects on color images. POPLITEAL: Normal compression and augmentation. No visualized echogenic material on marks scale. No de fects on color images. CALF VESSELS: Normal compression and augmentation. No visualized echogenic material on marks scale. No defects on color images. GSV AND SSV: Normal compression. No visualized echogenic material on marks scale. No defects on color images. ANY DEEP VENOUS INSUFFICIENCY: Not evaluated. ANY EVIDENCE POPLITEAL CYST: No. OTHER: No other significant finding. IMPRESSION: NO EVIDENCE DVT OR SVT IN EITHER LEG. TECHNICAL DOCUMENTATION: JOB ID: [id number] [employer]- All Rights Reserved Reading location - IP/workstation name: [email or web address]
--- NOTE | 2019-03-21 20:49 | EKG REPORT ---
SEVERITY:- NORMAL ECG - SINUS RHYTHM : Confirmed by: Yolanda Hernandez MD 21-Mar-2019 20:49:15
== END 2019-03-21 09:51 | disposition home or self-care (01) ==
LOC: ER 20:54
DX: R07.89 Other chest pain (principal); M79.604 Pain in right leg; M79.605 Pain in left leg; M79.89 Other specified soft tissue disorders; M79.602 Pain in left arm; M54.5 Low back pain; G89.29 Other chronic pain; R79.1 Abnormal coagulation profile; K30 Functional dyspepsia; N64.4 Mastodynia; Z86.718 Personal history of other venous thrombosis and embolism; J44.9 Chronic obstructive pulmonary disease, unspecified; Z79.82 Long term (current) use of aspirin; Z88.5 Allergy status to narcotic agent
CPT/HCPCS: 93005; 99284; 96374; 36415; 87086; 83690; 85025; 80053; 81001; 84484; 85379; 93970; 71045; 71275; 93010; J3490; S0028; J7620

== ENCOUNTER → 2019-04-03 | Outpatient (CLI) | payer OTHER | LOC: HHS 09:48 | DX: Z12.31 Encounter for screening mammogram for malignant neoplasm of breast (principal) ==

== ENCOUNTER 2019-10-27 13:37 | Emergency (ER) | payer OTHER ==
--- NOTE | 2019-10-27 13:51 | ER Document Report ---
ED GI/ - General Chief Complaint: Urinary Problem Stated Complaint: POSSIBLE UTI Time Seen by Provider: 10/27/19 13:43 Primary Care Provider: [facility] [Primary Care Provider] - Follow up in 3-5 days Mode of Arrival: Ambulatory Information source: Patient Notes: 64-year-old female presents to ED for complaint of burning frequency urgency with urination that started last week and got worse this week. States she saw her primary doctor last week but at that time she did not have the symptoms. She states she did call the primary doctor today and they do not have an appointment today until after the holidays so they recommended she come to the emergency room. She states they did take a urine sample from her last week and told her it was dark she needed to more water. TRAVEL OUTSIDE OF THE [place] IN LAST 30 DAYS: No - HPI Patient complains to provider of: Other - Urinary urgency frequency and burning Onset: Last week Timing/Duration: Gradual, Persistent Quality of pain: Burning, Pressure Severity at maximum: Moderate Severity in ED: Moderate Pain Level: 4 Location: Suprapubic, Vaginal Vaginal bleeding (Compared to normal period): None Associated symptoms: Urinary frequency, Urinary urgency, Other - Burning with urination Exacerbated by: Other Relieved by: Denies Similar symptoms previously: Yes Recently seen / treated by doctor: Yes - Related Data Allergies/Adverse Reactions: oxycodone [Oxycodone] Allergy (Mild, Verified 10/27/19 13:43) nausea, abdominal pain Past Medical History - General Information source: Patient - Social History Smoking Status: Former Smoker Frequency of alcohol use: None Drug Abuse: None Lives with: Alone Family History: Reviewed & Not Pertinent, CAD, COPD Patient has suicidal ideation: No Patient has homicidal ideation: No - Past Medical History Cardiac Medical History: Reports: Hx DVT, Hx Hypercholesterolemia Pulmonary Medical History: Reports: Hx Asthma, Hx Bronchitis, Hx COPD Neurological Medical History: Reports: None Endocrine Medical History: Reports: None Renal/ Medical History: Reports: None Malignancy Medical History: Reports: None GI Medical History: Reports: Hx Gastroesophageal Reflux Disease Musculoskeletal Medical History: Reports Hx Arthritis - Fingers, Reports Hx Musculoskeletal Trauma Skin Medical History: Reports None Psychiatric Medical History: Reports: Hx Anxiety, Hx Depression, Other - panic Traumatic Medical History: Reports: None, Hx Spine Fracture - Neck fracture with surgery Infectious Medical History: Reports: None Past Surgical History: Reports: Hx Cholecystectomy, Hx Genitourinary Surgery - Bladder tack, Hx Gynecologic Surgery - Colposcopy, Hx Orthopedic Surgery - Neck fracture with pin and donor bone surgery - Immunizations Immunizations up to date: No Hx Diphtheria, Pertussis, Tetanus Vaccination: No Hx Pneumococcal Vaccination: 12/01/15 Review of Systems - Review of Systems Constitutional: No symptoms reported EENT: No symptoms reported Cardiovascular: No symptoms reported Respiratory: No symptoms reported Gastrointestinal: No symptoms reported Genitourinary: No symptoms reported Musculoskeletal: No symptoms reported Skin: No symptoms reported Hematologic/Lymphatic: No symptoms reported Neurological/Psychological: No symptoms reported Physical Exam - Vital signs Vitals: Temp Pulse Resp BP Pulse Ox 97.8 F 110 H 28 H 129/77 H 96 10/27/19 13:41 10/27/19 13:41 10/27/19 13:41 10/27/19 13:41 10/27/19 13:41 Interpretation: Normal - General General appearance: Appears well, Alert - HEENT Head: Normocephalic, Atraumatic Eyes: Normal Pupils: PERRL - Respiratory Respiratory status: No respiratory distress Chest status: Nontender Breath sounds: Normal Chest palpation: Normal - Cardiovascular Rhythm: Regular Heart sounds: Normal auscultation Murmur: No - Abdominal Inspection: Normal Distension: No distension Bowel sounds: Normal Tenderness: Tender - Prepubic tenderness Organomegaly: No organomegaly - Back Back: Normal, Nontender - Extremities General upper extremity: Normal inspection, Nontender, Normal color, Normal ROM, Normal temperature General lower extremity: Normal inspection, Nontender, Normal color, Normal ROM, Normal temperature, Normal weight bearing. No: Antonio's sign - Neurological Neuro grossly intact: Yes Cognition: Normal Orientation: AAOx4 [place] Coma Scale Eye Opening: Spontaneous [place] Coma Scale Verbal: Oriented [place] Coma Scale Motor: Obeys Commands [place] Coma Scale Total: 15 Speech: Normal Motor strength normal: LUE, RUE, LLE, RLE Sensory: Normal - Psychological Associated symptoms: Normal affect, Normal mood - Skin Skin Temperature: Warm Skin Moisture: Dry Skin Color: Normal Course - Re-evaluation Re-evalutation: 10/27/19 14:56 Patient was positive for UTI. Results were discussed with patient and patient was treated with Keflex in the emergency room and discharged home with a prescription for Keflex. She has been instructed to follow-up with her primary care doctor doctor. A urine culture will be done as reflex patient has been i nformed if the culture comes back growing something that is not treatable with Keflex she will be called with a new prescription. Patient verbalized understanding and agreement with treatment plan patient was discharged home. - Vital Signs Vital signs: Temp Pulse Resp BP Pulse Ox 98 F 95 18 122/82 95 10/27/19 14:53 10/27/19 14:53 10/27/19 14:53 10/27/19 14:53 10/27/19 14:53 - Laboratory Laboratory results interpreted by me: 10/27/19 13:59 Urine Blood SMALL H Leukocyte Esterase Rfl LARGE H Discharge - Discharge Clinical Impression: UTI (urinary tract infection) Qualifiers: Urinary tract infection type: acute cystitis Hematuria presence: with hematuria Qualified Code(s): N30.01 - Acute cystitis with hematuria Condition: Stable Disposition: HOME, SELF-CARE Additional Instructions: URINARY TRACT INFECTION: Your evaluation indicates that you have a urinary tract infection. This is due to germs growing in the bladder. This is a common problem. This infection usually responds quickly to antibiotics. Your antibiotic should be taken exactly as prescribed. Drink plenty of fluids -- three to four quarts a day. Occasionally, a bladder anesthetic will be prescribed to help stop the feeling of urgency until the antibiotic has a chance to clear the infection. This may cause your urine to be dark orange. Certain urine infections require a culture. If the doctor obtained a culture, the results will be back in two days. You should call to see if a change in treatment is needed. A repeat urinalysis after you finish treatment is often recommended. The physician will let you know if further testing is required. Call the doctor if you develop fever, chills, flank pain, inability to urinate, or blood in the urine. CEPHALEXIN: The antibiotic you've been prescribed is a member of the cephalosporin class. This type of antibiotic covers a wide variety of infections, including those of the skin, lungs, and urinary tract. It's useful for staph infections. This antibiotic is slightly similar to the penicillin family. In rare cases, a person who is allergic to penicillin will also be allergic to this medication. If you have had a severe allergic reaction to penicillin, and have not taken this antibiotic since that time, notify your doctor. Antibiotics which cover many germs ("broad spectrum" antibiotics) are more likely to cause diarrhea or "yeast" infections. Women prone to vaginal yeast problems may suffer an attack after taking this antibiotic. In infants, oral thrush (white spots "stuck" on the cheek) or yeast diaper rash may result. See your doctor if these problems occur. Call at once if you develop itching, hives, shortness of breath, or lightheadedness. FOLLOW-UP CARE: If you have been referred to a physician for follow-up care, call the physicians office for an appointment as you were instructed or within the next two days. If you experience worsening or a significant change in your symptoms, notify the physician immediately or return to the Emergency Department at any time for re-evaluation. Prescriptions: Cephalexin Monohydrate [Keflex 500 mg Capsule] 500 mg PO Q6H 5 Days capsule Forms: Elevated Blood Pressure Referrals: [facility] [Primary Care Provider] - Follow up in 3-5 days
[2019-10-27 14:43] LABS: APPEARANCE,URINE SLIGHTLY-CLOUDY; BILIRUBIN,URINE NEGATIVE (NEGATIVE); COLOR,URINE YELLOW; GLUCOSE, URINE NEGATIVE (NEGATIVE); KETONES,URINE NEGATIVE (NEGATIVE); PROTEIN,URINE NEGATIVE (NEGATIVE); UROBILINOGEN,URINE NEGATIVE mg/dL (<2.0)
[2019-10-27] MEDS ORDERED: CEPHALEXIN 500 MG CAPSULE PO ONE (14:49)
[2019-10-27 15:03] VITALS: BP 122/82
== END 2019-10-27 14:58 | disposition home or self-care (01) ==
LOC: ER 13:37
DX: N30.01 Acute cystitis with hematuria (principal); J44.9 Chronic obstructive pulmonary disease, unspecified; Z87.891 Personal history of nicotine dependence; Z88.5 Allergy status to narcotic agent
CPT/HCPCS: 81001; 87086; 87088; 87186; 99283

== ENCOUNTER → 2019-11-12 | Outpatient (CLI) | payer OTHER ==
--- NOTE | 2019-11-12 12:07 | RADIOLOGY REPORT (SQ) ---
EXAM DESCRIPTION: U/S NON OB PEL W/DOPPLER COMPLETED DATE/TIME: 11/12/2019 11:05 am REASON FOR STUDY: PELVIC PAIN R10.2 PELVIC AND PERINEAL PAIN COMPARISON: None. TECHNIQUE: Dynamic and static grayscale images acquired of the pelvis via transabdominal approach an d recorded on PACS. Additional selected color Doppler and spectral images recorded. LIMITATIONS: None. FINDINGS: UTERUS: Contour normal. No mass. ENDOMETRIAL STRIPE: No focal or generalized thickening. No masses. CERVIX: No nabothian cysts. RIGHT OVARY AND DOPPLER: Not seen. LEFT OVARY AND DOPPLER: Not seen. FREE FLUID: None noted. OTHER: No bladder lesions. Postvoid residual. 393 cc prevoid; 128 cc postvoid. MEASUREMENTS: UTERUS: 6.8 x 2.3 x 4.5 cm. ENDOMETRIAL STRIPE: 3.2 mm RIGHT OVARY: Not visualized. LEFT OVARY: Not visualized. IMPRESSION: Normal appearance of the uterus. Ovaries not seen. TECHNICAL DOCUMENTATION: JOB ID: [id number] [employer]- All Rights Reserved Rev-04/17 Reading location - IP/workstation name: [email or web address]
== END ==
LOC: RAD 10:05
PROVIDERS: ATTEND Family Medicine
DX: R10.2 Pelvic and perineal pain (principal); N39.0 Urinary tract infection, site not specified
CPT/HCPCS: 76856; 93976

== ENCOUNTER → 2019-12-13 | Outpatient (CLI) | payer OTHER ==
[2019-12-13 15:24] LABS: ABSOLUTE EOSINOPHILS # (AUTO) 0.1 10^3/uL (0.0-0.6); ABSOLUTE LYMPHOCYTES (AUTO) 1.9 10^3/uL (0.5-4.7); ABSOLUTE MONOCYTES (AUTO) 0.5 10^3/uL (0.1-1.4); ABSOLUTE NEUT (AUTO) 4.6 10^3/uL (1.7-8.2); BASOPHILS % (AUTO) 0.5 % (0-2); EOSINOPHILS % (AUTO) 0.9 % (0-6); HEMATOCRIT 41.2 % (36.0-47.0); HEMOGLOBIN 13.8 g/dL (12.0-15.5); LYMPHOCYTES % (AUTO) 26.5 % (13-45); MEAN CORPUSCULAR HEMOGLOBIN 28.9 pg (27.0-33.4); MEAN CORPUSCULAR HGB CONC 33.4 g/dL (32.0-36.0); MEAN CORPUSCULAR VOLUME 86 fl (80-97); MONOCYTES % (AUTO) 7.6 % (3-13); PLATELET COUNT 305 10^3/uL (150-450); RED BLOOD COUNT 4.77 10^6/uL (3.72-5.28); RED CELL DISTRIBUTION WIDTH 14.9 % (11.5-14.0); SEGMENTED NEUTROPHILS % (AUTO) 64.5 % (42-78); TOTAL CELLS COUNTED % (AUTO) 100 %; WHITE BLOOD COUNT 7.1 10^3/uL (4.0-10.5)
[2019-12-13 15:47] LABS: APPEARANCE,URINE CLEAR; BILIRUBIN,URINE NEGATIVE (NEGATIVE); COLOR,URINE STRAW; GLUCOSE, URINE NEGATIVE (NEGATIVE); KETONES,URINE NEGATIVE (NEGATIVE); LEUKOCYTE ESTERASE,URINE TRACE (NEGATIVE); NITRITE,URINE NEGATIVE (NEGATIVE); PROTEIN,URINE NEGATIVE (NEGATIVE); URINE SPECIFIC GRAVITY 1.005; UROBILINOGEN,URINE NEGATIVE mg/dL (<2.0)
[2019-12-13 15:50] LABS: ALBUMIN 4.5 g/dL (3.5-5.0); ALKALINE PHOSPHATASE 114 U/L (38-126); ANION GAP 11 (5-19); ASPARTATE AMINO TRANSFERASE 31 U/L (14-36); BILIRUBIN,DIRECT 0.3 mg/dL (0.0-0.4); BILIRUBIN,TOTAL 0.4 mg/dL (0.2-1.3); BLOOD UREA NITROGEN 10 mg/dL (7-20); CALCIUM 9.4 mg/dL (8.4-10.2); CARBON DIOXIDE 27 mmol/L (22-30); CHLORIDE 103 mmol/L (98-107); GLUCOSE 76 mg/dL (75-110); POTASSIUM 4.1 mmol/L (3.6-5.0); TOTAL PROTEIN 7.8 g/dL (6.3-8.2)
== END ==
LOC: CCC 14:43
DX: J44.0 Chronic obstructive pulmonary disease with (acute) lower respiratory infection (principal); N39.0 Urinary tract infection, site not specified
CPT/HCPCS: 36415; 80053; 81001; 85025; 87086; 87088; 87186